=== PATIENT | female | born 1990 | race Caucasian/White ===

== ENCOUNTER 2021-03-16 08:23 | Outpatient (REF) | payer OTHER, SELFPAY ==
[2021-03-16 09:40] LABS: COVID-19 Test Negative (Negative)
== END 2021-03-16 08:24 | disposition home or self-care (01) ==
LOC: HO.LAB 08:23
PROVIDERS: Visit Provider Internal Medicine
DX: Z20.822 Contact with and (suspected) exposure to COVID-19 (principal)
CPT/HCPCS: 36415; 87635; C9803

== ENCOUNTER 2021-03-23 07:38 | Outpatient (REF) | payer OTHER, SELFPAY ==
[2021-03-23 08:03] LABS: COVID-19 Test Negative (Negative)
== END 2021-03-23 07:39 | disposition home or self-care (01) ==
LOC: HO.LAB 07:38
PROVIDERS: Visit Provider Internal Medicine
DX: Z20.822 Contact with and (suspected) exposure to COVID-19 (principal)
CPT/HCPCS: 36415; 87635; C9803

== ENCOUNTER → 2021-03-27 10:58 | Outpatient (BNVA) | payer OTHER, SELFPAY | PROVIDERS: Visit Provider Obstetrics & Gynecology ==

== ENCOUNTER → 2021-04-18 11:07 | Outpatient (BNVA) | payer OTHER, SELFPAY | PROVIDERS: PCP Internal Medicine Medical Oncology; Visit Provider Obstetrics & Gynecology | DX: Z30.432 Encounter for removal of intrauterine contraceptive device (principal); N83.202 Unspecified ovarian cyst, left side | CPT/HCPCS: 58301; 96372; 99212; J1050 ==

== ENCOUNTER 2021-04-27 07:50 | Outpatient (REF) | payer OTHER, SELFPAY ==
[2021-04-27 08:08] LABS: COVID-19 Test Negative (Negative)
== END 2021-04-27 07:51 | disposition home or self-care (01) ==
LOC: HO.EMPCOV 07:50
PROVIDERS: Visit Provider Internal Medicine
DX: Z20.822 Contact with and (suspected) exposure to COVID-19 (principal)
CPT/HCPCS: 36415; 87635; C9803

== ENCOUNTER 2021-05-03 11:10 | Outpatient (REF) | payer OTHER, SELFPAY ==
--- NOTE | ~2021-05-03 | US_ITS ---
EXAMINATION: ULTRASOUND PELVIS AND TRANSVAGINAL CLINICAL INFORMATION: Left side ovarian cyst. COMPARISON: None TECHNIQUE: Transabdominal and transvaginal imaging of pelvis was performed. FINDINGS: The uterus is anteverted and anteflexed measuring 8.0 cm in length, 4.1 cm AP and 4.9 cm in transverse dimension. The endometrial thickness is 0.4 cm. The uterus is homogeneous in echotexture without any focal lesion. There are small nabothian cysts seen in the cervix. Right ovary measures 3.5 x 1.7 x 2.5 cm and volume 7.8 mL. It appears unremarkable. Previously right ovary measured 3.1 x 1.8 x 3.0 cm. The left ovary measures 3.7 x 2.3 x 3.6 cm and volume 16.0 mL. No focal lesions seen. Previously left ovary measured 3.3 x 2.4 x 2.6 cm. There is no free fluid cul-de-sac. US/US pelvic and transvaginal IMPRESSION: Small nabothian cysts in the cervix. The uterus and ovaries unremarkable.
== END 2021-05-03 11:11 | disposition home or self-care (01) ==
LOC: HO.US 11:10
PROVIDERS: Visit Provider Obstetrics & Gynecology
DX: N83.202 Unspecified ovarian cyst, left side (principal)
CPT/HCPCS: 76830; 76856

== ENCOUNTER → 2021-05-18 11:31 | Outpatient (BNVA) | payer OTHER, SELFPAY | PROVIDERS: PCP Internal Medicine Medical Oncology; Visit Provider Obstetrics & Gynecology ==

== ENCOUNTER → 2021-07-13 12:56 | Outpatient (BNVA) | payer OTHER, SELFPAY | PROVIDERS: PCP Internal Medicine Medical Oncology; Visit Provider Obstetrics & Gynecology | DX: Z30.42 Encounter for surveillance of injectable contraceptive (principal) | CPT/HCPCS: 96372; 99211 ==

== ENCOUNTER → 2021-10-10 15:04 | Outpatient (BNVA) | payer OTHER, SELFPAY | PROVIDERS: PCP Internal Medicine Medical Oncology; Visit Provider Advanced Practice Midwife | DX: Z30.42 Encounter for surveillance of injectable contraceptive (principal) | CPT/HCPCS: 96372; 99211 ==

== ENCOUNTER 2021-10-16 11:15 | Emergency (ER) | payer OTHER, SELFPAY ==
[2021-10-16 12:44] VITALS: BP 104/66; PULSE 73; RESP 18; TEMP 36.5; O2SAT 99; BMI 18.9
--- NOTE | 2021-10-16 13:50 | ED_ITS ---
HPI - Dental/Oral General Chief complaint: Skin/Abscess/Foreign Body Stated complaint: dental pain (abscess) Time Seen by Provider: 10/16/21 13:49 Source: patient Mode of arrival: ambulatory Limitations: no limitations History of Present Illness HPI Narrative: 31-year-old female presenting to the ER with severe right-sided tooth pain for the last 3 days. She reports a history of fillings in cavities in the bottom molars on both sides. She reports pain started very mild on Friday afternoon and that has been getting progressively worse. She has been taking Motrin Tylenol without any improvement. She noticed when she woke up this morning she had right lower jaw swelling and pain. He has had no fever or chills. She is able to fully open and close her jaw. She has increased discomfort with palpation and when eating. She reports history of a bad experience with the dentist in the past and has not been in several years. MD Complaint: tooth pain Location: Tooth # Teeth map: 1. Cracked tooth with exposed cavity filling and pulp, associated gingival swelling and tenderness. Onset (ago): day(s) (3) Duration: constant Severity: severe Severity scale (1-10): 8 Relieving factors: nothing Exacerbating factors: chewing and cold Context: history of dental caries, trauma (mechanism) and poor dental care Associated symptoms: gum swelling Treatment prior to arrival: oral analgesic Related Data Previous Rx's Medication Instructions Recorded amoxicillin 500 mg capsule 500 mg PO BID 10 Days #20 cap 11/08/20 ibuprofen 800 mg tablet 800 mg PO Q8H PRN #20 tab 11/08/20 medroxyprogesterone 150 mg/mL 150 mg IM [id number] #1 ml 03/27/21 intramuscular suspension amoxicillin 500 mg tablet 500 mg PO Q8H 7 Days #21 tab 10/16/21 chlorhexidine gluconate 0.12 % 15 ml BUCCAL BID #118 ml 10/16/21 mouthwash (Peridex) ibuprofen 600 mg tablet 600 mg PO Q8H PRN #20 tab 10/16/21 tramadol 50 mg tablet 50 mg PO Q8H PRN #8 tab 10/16/21 Allergies Allergy/AdvReac Type Severity Reaction Status Date / Time No Known Allergies Allergy Verified 05/18/21 11:31 [No Known Allergies*] Review of Systems Constitutional: Constitutional: Denies chills, Denies fever(s) and Reports headache(s) Eyes: Eyes: Reports no additional eye complaints ENT: Denies bleeding gums, Reports dental pain, Denies dysphagia, Reports ot algia, Reports headache(s), Denies hoarseness, Reports mouth pain, Denies neck pain, Denies throat swelling and Denies tongue swelling Cardiovascular: Cardiovascular: Denies chest pain Respiratory: Respiratory: Denies cough Gastrointestinal: Gastrointestinal: Denies dysphagia, Denies nausea and Denies vomiting Musculoskeletal: Musculoskeletal: Denies neck pain Integumentary/Breasts: Skin/Breast: Reports swelling (Right mandible) Neurologic: Reports headache(s) Psychiatric: Psychiatric: Reports anxiety Hematologic/Lymphatic: Hematologic/Lymphatic: Denies easy bleeding Allergic/Immunologic: Allergic/Immunologic: Denies throat swelling and Denies tongue swelling [facility] Past Medical History Medical History (Updated 10/16/21 @ 14:30 by DELGADO Mcmanus) History of migraine Left ovarian cyst Ovarian cyst Surgical History (Updated 04/18/21 @ 11:15 by STACI Godoy) Hx of section Family History Family History (Updated 04/18/21 @ 11:15 by STACI Godoy) Paternal Aunt Breast cancer Social History Social History (Updated 04/18/21 @ 11:16 by STACI Godoy) Alcohol intake: never Advance Directives: No Advance Directives Information Provided: No Gender identity: Female Physical Exam Vital Signs: Vital Signs: Last Vital Signs Temp 97.7 F 10/16/21 12:44 Pulse 73 10/16/21 12:44 Resp 18 10/16/21 12:44 BP 104/66 10/16/21 12:44 Pulse Ox 99 10/16/21 12:44 Body Mass Index 18.9 Const: General: cooperative and no acute distress Nutritional Appearance: average body habitus Orientation/consciousness: patient oriented x3 Limitations: no limitations HENMT: Head: Yes normal to inspection, Yes normocephalic and Yes atraumatic Ears: hearing grossly normal bilaterally, external ears normal and TM's normal b ilaterally General nose exam: Normal external nose present and Normal nares present Face and sinus: Yes edema (Swelling of the right lower jaw. Face is asymmetrical.) and Yes Facial tenderness on exam of face and sinuses Mouth: Normal oral and palatal mucosa present, lip normal, tongue normal and moist mucous membranes Teeth and gingiva: abnormal tooth and associated gingiva lower second molar tender, avulsed, with associated gingival edema, with associated gingival fluctuance, enamel fractured, dentin fractured and pulp exposed and gingiva abnormal edematous, tender and discolored Throat: Yes posterior oropharynx normal, Yes tonsils normal and Yes uvula midline Eyes: General: appearance normal, both eyes and all related structures Neck: Neck: Yes normal visual inspection, No anterior neck swelling and Yes lymphadenopathy (Right sub mandibular) Chest: Chest palpation & inspection: normal inspection of the chest Resp: Effort & Inspection: normal respiratory effort and able to speak in complete sentences Skin: General skin exam: no rashes or lesions noted Neuro: General: patient oriented x3 Extrem: General: Yes normal to inspection Psych: Appearance: grossly normal and well kempt Mental Status: mental status grossly normal Speech and movement: Normal speech and movement present and Clear speech present Course Course Course Narrative: 31-year-old female presenting to the ER with right-sided lower dental pain for the last 3 days. Her exam and clinical presentation are consistent with a dental abscess. She has poor dental care with fractures and exposed pulp on the right 2nd lower molar. Topical lidocaine place with plan for incision and drainage. Patient agreeable. Will need antibiotics and dental follow-up. Expressed importance of following up with a dentist for evaluation of root canal versus extraction. Reevaluation(s) Reevaluation #1: Patient tolerated procedure well small amount of pus was expressed from the abscess. Will start on amoxicillin for 1 week, NSAIDs, pain control. Will have her follow-up with a dentist, emergency dentist was provided. Stable for discharge home with patient expressed understanding of the importance of following up with a dentist. Procedures Abscess I/D Site: oral Side (if applicable): right Local Anesthetic: other anesthetic (Topical lollicane) Technique: incised with blade Sent for culture/gram staining?: No Irrigation: Yes Packing used?: none Complications: pain and bleeding Critical Care Time Critical Care Time Critical Care Time: No Discharge Plan Discharge Clinical Impression: Abscess, dental Patient Disposition: Home, Self-Care Instructions: Dental Abscess (ED) Additional Instructions: A small incision was used to drain the abscess and your tooth. This will require further treatment and management by a dentist. Take the prescribed antibiotics as directed for 1 complete week. Take 600 mg of ibuprofen every 8 hours to help with pain and inflammation. Take with food. Avoid food very hot and very cold. Used prescribed antiseptic mouthwash 2 times a day as directed. Take the prescribed tramadol as needed for severe pain. Do not drive after taking this medication. Follow-up with a dentist as soon as possible. Emergency list was provided to you today. If you develop new or worsening symptoms call 911 or come back to the ER for further evaluation. Prescriptions: New amoxicillin 500 mg tablet 500 mg PO Q8H 7 Days Qty: 21 RF: 0 ibuprofen 600 mg tablet 600 mg PO Q8H PRN (Reason: pain) Qty: 20 RF: 0 chlorhexidine gluconate [Peridex] 0.12 % mouthwash 15 ml buccal BID Qty: 118 RF: 0 tramadol 50 mg tablet 50 mg PO Q8H PRN (Reason: pain) Qty: 8 RF: 0 No Action ibuprofen 800 mg tablet 800 mg PO Q8H PRN (Reason: pain) Qty: 20 RF: 0 amoxicillin 500 mg capsule 500 mg PO BID 10 Days Qty: 20 RF: 0 medroxyprogesterone 150 mg/mL suspension 150 mg IM [id number] Qty: 1 RF: 3
== END 2021-10-16 14:44 | disposition home or self-care (01) ==
PROVIDERS: Emergency Provider Emergency Medicine; PCP Internal Medicine Medical Oncology
DX: K04.7 Periapical abscess without sinus (principal); Z79.899 Other long term (current) drug therapy
CPT/HCPCS: 99283

== ENCOUNTER 2022-08-14 10:12 | Emergency (ER) | payer OTHER, SELFPAY ==
--- NOTE | ~2022-08-14 | XR_ITS ---
EXAMINATION: XR CHEST CLINICAL INFORMATION: Congestion, cough. COMPARISON: None TECHNIQUE: 2 views of the chest were obtained. FINDINGS: No significant abnormality is noted involving the heart, lungs, mediastinum, bony thorax or soft tissues. XR/XR chest 2V IMPRESSION: Unremarkable examination.
--- NOTE | 2022-08-14 10:44 | ECG_ITS ---
Test Reason : cp Blood Pressure : / mmHG Vent. Rate : 074 BPM Atrial Rate : 074 BPM P-R Int : 164 ms QRS Dur : 082 ms QT Int : 380 ms P-R-T Axes : 067 076 046 degrees QTc Int : 421 ms Normal sinus rhythm Normal ECG No previous ECGs available Referred By: Generic ED Physician Electronically Signed By:SUZI DAWN
[2022-08-14 10:49] VITALS: BP 121/74; PULSE 82; RESP 16; TEMP 36.6; O2SAT 100; BMI 19.1
[2022-08-14 11:05] LABS: Appearance Urine Clear; Color Urine Yellow; Glucose Urine UA Negative (Negative); Leukocyte Esterase Urine Trace (Negative); Nitrite Urine Negative (Negative); PH 5.5 (5.0-9.0); Specific Gravity - Urine 1.025 (1.005-1.025); UMIC TRIGGER UACC YES; Urine Blood Moderate (2+) (Negative); Urine Ketones Trace mg/dL (Negative); Urine Protein 30 (1+) mg/dL (Neg-Trace)
[2022-08-14 11:10] LABS: Bacteria Urine None Seen (None Seen); RBC Urine >20 /HPF (0-2); WBC Urine 0-5 /HPF (0-5)
[2022-08-14 11:51] LABS: UPreg QC Valid YES; Urine Pregnancy NEGATIVE (NEGATIVE)
== END 2022-08-14 16:36 | disposition left against medical advice (07) ==
PROVIDERS: Emergency Medicine; Emergency Provider Emergency Medicine
DX: U07.1 COVID-19 (principal); R07.89 Other chest pain; R51.9 Headache, unspecified; R10.9 Unspecified abdominal pain; Z79.899 Other long term (current) drug therapy
CPT/HCPCS: 71046; 81001; 81003; 81025; 93005; 99283

== ENCOUNTER 2022-09-10 11:57 | Outpatient (REF) | payer OTHER, SELFPAY ==
[2022-09-11 03:29] LABS: CT PCR NOT DETECTED (Not Detect.); NG PCR NOT DETECTED (Not Detect.)
[2022-09-11 12:44] LABS: BV Int Neg Control Negative (Negative); BV Int Pos Control Positive (Positive)
[2022-09-13 10:07] LABS: HPV mRNA E6/E7 rflx Not Detected (Not Detected)
== END 2022-09-10 11:58 | disposition home or self-care (01) ==
LOC: HO.LNP 11:57
PROVIDERS: Visit Provider Advanced Practice Midwife
DX: Z01.419 Encounter for gynecological examination (general) (routine) without abnormal findings (principal); Z11.51 Encounter for screening for human papillomavirus (HPV)
CPT/HCPCS: 87480; 87491; 87510; 87591; 87624; 87660; 88142

== ENCOUNTER → 2022-09-19 11:00 | Outpatient (BNVA) | payer OTHER, SELFPAY | PROVIDERS: PCP Nurse Practitioner Family; Visit Provider Advanced Practice Midwife | DX: Z30.42 Encounter for surveillance of injectable contraceptive (principal) | CPT/HCPCS: 96372; 99211 ==

== ENCOUNTER 2022-09-23 13:43 | Outpatient (REF) | payer OTHER, SELFPAY ==
--- NOTE | ~2022-09-23 | MM_ITS ---
EXAMINATION: MM DIAGNOSTIC DIGITAL BREAST TOMOSYNTHESIS, BILATERAL TARGETED RIGHT BREAST ULTRASOUND CLINICAL INFORMATION: Palpable mass. The lifetime risk of breast cancer based on the Tyrer-Cuzick Model is 16.1%. COMPARISON: Mammography: None. TECHNIQUE: Digital breast tomosynthesis is performed in both the craniocaudal and mediolateral oblique views along with computer-aided detection (CAD). Synthesized 2D images are generated from the tomosynthesis. Targeted right breast ultrasound. FINDINGS: The breasts are extremely dense, which lowers the sensitivity of mammography (ACR BI-RADS breast composition Category d). Breast parenchyma is very dense making mammographic evaluation difficult. No abnormal dominant mass is appreciated. No suspicious grouping of microcalcifications identified. Targeted right breast ultrasound to region of patient's pain 7 o'clock position 4 cm from the nipple demonstrated a hypoechoic lesion measuring approximately 2.4 x 0.4 x 2.3 cm in size with some mild internal vascularity present. The lesion is wider than it is tall. No distal sound shadowing is appreciated. No significant distal sound enhancement is seen. Ultrasound-guided core biopsy is recommended. Results are discussed with the patient at time of visit. MM/MM tomosynthesis diagnostic BI IMPRESSION: Solid right breast lesion in region of patient's pain and mass felt by doctor for which ultrasound-guided core biopsy is recommended. ASSESSMENT: BI-RADS 4: Suspicious (subcategory 4A: Low suspicion for malignancy) RECOMMENDATION: Ultrasound-guided core biopsy right breast. Above recommendation was called to provider's office given to [place]. This patient's information was entered into a reminder system with a target due date for their next mammogram.
== END 2022-09-23 13:44 | disposition home or self-care (01) ==
LOC: HO.MAMMO 13:43
PROVIDERS: PCP Internal Medicine; Visit Provider Nurse Practitioner Family
DX: N63.13 Unspecified lump in the right breast, lower outer quadrant (principal)
CPT/HCPCS: 76642; 77062; 77066

== ENCOUNTER 2022-09-27 12:10 | Outpatient (REF) | payer OTHER, SELFPAY ==
[2022-09-27 13:37] LABS: MANUAL DIFF FLAG NO
[2022-09-27 13:42] LABS: Basophils Absolute Auto 0.1 X10*3/uL (0.0-0.2); Basophils Percent Auto 0.9 % (0-2); Eosinophils Absolute Auto 0.1 X10*3/uL (0.0-0.4); Eosinophils Percent Auto 1.4 % (0-4); Hematocrit 42.4 % (37.0-47.0); Hemoglobin 14.4 g/dl (12.0-16.0); Imm Gran Abs Auto 0.02 X10*3/uL (0.00-0.03); Imm Gran Pct Auto 0.3 % (0.0-0.4); Lymphocytes Absolute Auto 2.6 X10*3/uL (1.2-4.9); Lymphocytes Percent Auto 37.4 % (20-40); Mean Corpuscular Hemoglobin 30.3 pg (27.0-33.0); Mean Corpuscular Volume 89.3 fL (80.0-98.0); Mean Platelet Volume 8.4 fL (9.4-12.3); Monocytes Absolute Auto 0.5 X10*3/uL (0.1-1.2); Monocytes Percent Auto 7.1 % (2-11); Neutrophils Absolute Auto 3.7 x10*3/uL (2.0-8.3); Neutrophils Percent Auto 52.9 % (45-73); Platelet Count 296 X10*3/uL (160-400); Red Blood Count 4.75 X10*6/uL (4.20-5.50); Red Cell Distribution Width 12.8 % (11.0-16.0); White Blood Count 6.9 X10*3/uL (4.8-10.8)
[2022-09-27 14:07] LABS: Appearance Urine Clear; Color Urine Yellow; Glucose Urine UA Negative (Negative); Leukocyte Esterase Urine Negative (Negative); Nitrite Urine Negative (Negative); PH 5.5 (5.0-9.0); Specific Gravity - Urine >= 1.030 (1.005-1.025); Urine Blood Negative (Negative); Urine Ketones Negative (Negative); Urine Protein Negative (Neg-Trace)
[2022-09-27 14:45] LABS: Alanine Aminotransferase 16 U/L (0-31); Albumin Level 4.8 g/dL (3.5-5.0); Alkaline Phosphatase 57 U/L (39-117); Anion Gap 16 (12-20); Aspartate Amino Transferase 21 U/L (5-31); Bilirubin Total 0.3 mg/dL (0.0-1.0); Blood Urea Nitrogen 12 mg/dL (9-16); Calcium 9.5 mg/dL (8.4-10.2); Carbon Dioxide 22 mmol/L (22-29); Chloride 102 mmol/L (96-108); Estimated Glomerular Filt Rate > 60; Glucose Random 80 mg/dL (60-115); Sodium 136 mmol/L (135-145); Total Protein 7.4 g/dL (6.5-8.0)
[2022-09-27 15:08] LABS: TSH reflex Free T4 1.38 uIU/mL (0.32-4.0); Vitamin D 25-OH Total 12.3 ng/mL (>30)
== END 2022-09-27 12:11 | disposition home or self-care (01) ==
LOC: HO.10HDL 12:10
PROVIDERS: Visit Provider Internal Medicine
DX: F41.9 Anxiety disorder, unspecified (principal); R53.83 Other fatigue; E55.9 Vitamin D deficiency, unspecified; R30.0 Dysuria
CPT/HCPCS: 36415; 80053; 81003; 82306; 84443; 85025

== ENCOUNTER 2022-10-04 09:25 | Outpatient (REF) | payer OTHER, SELFPAY ==
--- NOTE | ~2022-10-04 | MM_ITS ---
EXAMINATION: ULTRASOUND GUIDED CORE BIOPSY BREAST, RIGHT POST PROCEDURE DIGITAL MAMMOGRAM, RIGHT CLINICAL INFORMATION: 32-year-old with palpable area lower outer right breast, possibly fibroadenoma or PASH on ultrasound. COMPARISON: Mammography and right breast ultrasound 09/23/2022. FINDINGS: Proper informed consent is obtained from the patient after discussion of the procedure, potential risks and complications, and alternatives. Patient was given an opportunity for questions. The patient appeared to understand. The patient consented to the procedure and signed the consent form. GUIDANCE: Ultrasound-guided; aseptic technique. LESION: Circumscribed oblong hypoechoic mass lower inner breast parallel with the skin measuring 0.4 cm thickness by 2.4 cm in length.. APPROACH: Oblique lateral medial. ANESTHESIA: 10 mL carbonated 1% lidocaine. DERMATOTOMY: Single skin nola dermatotomy performed. NEEDLE: 14-gauge Achieve core biopsy device with 13.5-gauge co-axial guide needle. CORES: 5. CLIP: HydroMARK; shape: open coil. POST PROCEDURE UNILATERAL DIGITAL MAMMOGRAM: The post biopsy mammogram is performed in separate room using separate digital mammography equipment from the biopsy procedure. CC and ML views are obtained. The breasts are extremely dense, which lowers the sensitivity of mammography (breast composition category: d). The clip marker is in position. No gross hematoma. The patient tolerated the procedure well. No immediate complications. Home instructions reviewed with the patient. Final pathology results are pending. MM/MM diagnostic mammo unilat RT IMPRESSION: 1. Status post ultrasound-guided core biopsy right breast. 2. Clip placed: HydroMARK; shape: open coil. 3. Pathology pending. An addendum report will be issued.
[2022-10-04] MEDS: Lidocaine HCl 1 % 20 ML VIAL 10 ML SUBCUT (11:03)
[2022-10-04] MEDS: Sodium Bicarbonate 8.4% 50 MEQ/50 ML VIAL SUBCUT (11:04)
== END 2022-10-04 09:26 | disposition home or self-care (01) ==
LOC: HO.MAMMO 09:25
PROVIDERS: PCP Internal Medicine; Visit Provider Surgery
DX: R92.8 Other abnormal and inconclusive findings on diagnostic imaging of breast (principal)
CPT/HCPCS: 19083; 77062; 77065; 88305; 99202; A4648

== ENCOUNTER → 2022-10-09 12:51 | Outpatient (BNVA) | payer OTHER, SELFPAY | PROVIDERS: PCP Internal Medicine; Visit Provider Surgery | DX: D24.9 Benign neoplasm of unspecified breast (principal); Z80.3 Family history of malignant neoplasm of breast | CPT/HCPCS: 99212 ==

== ENCOUNTER 2022-12-05 16:47 | Outpatient (REF) | payer OTHER, SELFPAY ==
--- NOTE | ~2022-12-05 | XR_ITS ---
EXAMINATION: XR LUMBOSACRAL SPINE CLINICAL INFORMATION: Low back pain COMPARISON: None TECHNIQUE: Three views of the lumbosacral spine. FINDINGS: The vertebral bodies and posterior elements are normal. The disc spaces are preserved and the vertebral alignment is normal. The paraspinal soft tissues are normal. XR/XR lumbar spine 2-3V IMPRESSION: Unremarkable examination.
== END 2022-12-05 16:48 | disposition home or self-care (01) ==
LOC: HO.XRAY 16:47
PROVIDERS: PCP Internal Medicine; Visit Provider Internal Medicine
DX: M54.50 Low back pain, unspecified (principal)
CPT/HCPCS: 72100

== ENCOUNTER → 2022-12-11 10:51 | Outpatient (BNVA) | payer OTHER, SELFPAY | PROVIDERS: PCP Internal Medicine; Visit Provider Advanced Practice Midwife | DX: Z30.42 Encounter for surveillance of injectable contraceptive (principal) | CPT/HCPCS: 96372; 99211 ==

== ENCOUNTER 2023-05-09 07:49 | Emergency (ER) | payer OTHER, SELFPAY ==
[2023-05-09 07:53] VITALS: BP 128/81; PULSE 77; RESP 18; TEMP 36.2; O2SAT 98; BMI 21.5
--- NOTE | 2023-05-09 08:15 | ED_ITS ---
HPI - General Adult General Chief complaint: Dental/Oral Stated complaint: tooth infection Time Seen by Provider: 05/09/23 08:03 Source: patient Mode of arrival: ambulatory Limitations: no limitations History of Present Illness HPI narrative: Patient is a 33-year-old female with history of migraines, fibroadenoma, smoking, and dental abscesses presenting with dental pain to right lower jaw for the past 3 days. Patient was prescribed Keflex and Tramadol for her symptoms which she has been taking for two days without improvement. She reports significant tooth decay, does not currently have a dentist. She reports history of prior bad experiences and significant anxiety related to going to the dentist but states she is actively looking for a dentist for her symptoms. She denies any fevers, is able to fully open her jaw, is still smoking. She reports pain is radiating to her right ear and right lower jaw. States has also been using mouthwash. Denies recent steroids or inhaler use. MD complaint: right dental pain Onset (ago): day(s) Location: mouth and right Radiation: other (right ear, right lower jaw) Severity: severe Quality: aching Pain Consistency: constant Relieving factors: cold therapy Exacerbating factors: eating Associated symptoms: denies other symptoms Treatments prior to arrival: other (keflex, tramadol) Related Data Previous Rx's Medication Instructions Recorded medroxyprogesterone 150 mg/mL 150 mg IM Q12W #1 mL 09/10/22 intramuscular suspension (Depo-Provera) sumatriptan succinate 50 mg tablet See Rx Instructions PO .COMPLEX 10/29/22 #30 tabs tizanidine 4 mg tablet 4 mg PO Q8H PRN muscle spasticity 11/22/22 10 days #30 tabs vjvivhrnxv-shdnxpwfnawte-txbpelje 1 tab PO Q6H PRN headache #30 tabs 03/13/23 50 mg-325 mg-40 mg tablet sertraline 50 mg tablet 50 mg PO DAILY 30 days #30 tabs 03/18/23 hydrocodone 5 mg-acetaminophen 325 1 tab PO BID PRN severe pain #10 04/10/23 mg tablet tabs cephalexin 500 mg capsule 500 mg PO QID 7 days #28 caps 05/08/23 tramadol 50 mg tablet 50 mg PO TID PRN pain 7 days #20 05/08/23 tabs amoxicillin 875 mg tablet 875 mg PO TID #21 tabs 05/09/23 nystatin 100,000 unit/mL oral 500,000 unit (5 mL) PO QID 7 days 05/09/23 suspension #140 mL Allergies Allergy/AdvReac Type Severity Reaction Status Date / Time No Known Allergies Allergy Verified 05/09/23 07:53 [No Known Allergies*] Review of Systems Review of Systems: As per HPI. Yes all other systems are reviewed and are negative Constitutional: Constitutional: Reports as per HPI [facility] Past Medical History Medical History Family history of breast cancer Fibroadenoma History of migraine Left ovarian cyst Ovarian cyst Smoker Surgical History Hx of section Family History Family History Paternal Aunt Breast cancer Father Hypertension High cholesterol Mother Hypertension High cholesterol Social History Social History Housing: Apartment Alcohol intake: current Alcohol intake frequency: holidays/special occasions only Patient Tobacco Use Status: Current everyday Tobacco user Tobacco use type: Cigarette Cigarettes Per Day: 7 Second Hand Smoke Exposure: Yes Advance Directives: No Advance Directives Information Provided: No service: No Current occupational status: employed Gender identity: Female Cognitive needs: No Hearing needs: No Vision needs: No Physical Exam ED Vital Signs: Vital Signs - 24 hr 05/09/23 07:53 Temperature 97.1 F Pulse Rate 77 Respiratory Rate 18 Blood Pressure 128/81 Pulse Oximetry 98 Oxygen Delivery Method Room Air BMI result Body Mass Index 21.5 Vital signs have been reviewed and appear to be correct. Blood pressure normal. Heart rate normal. Respiratory rate normal. Temperature normal. Oxygen saturation normal. Const General: cooperative, healthy appearing and no acute distress Orientation/consciousness: oriented to person, oriented to place, oriented to time and patient oriented x3 Limitations: no limitations HENMT Head: Yes normocephalic and Yes atraumatic Ears: external ears normal, TM's normal bilaterally, EAC's normal, mastoids normal and no periauricular adenopathy General nose exam: Normal external nose present Mouth: no audible dysphonia, no drooling, tongue abnormal discolored (white plaque) and with white coating; not hairy and without lesions, no trismus and No restricted motion Teeth and gingiva: abnormal tooth and associated gingiva lower right and poor dentition Teeth image: 1. Exposed cavity filling and pulp, gingival erythema, tenderness Throat: Yes posterior oropharynx normal and Yes uvula midline Eyes Pupils: Equal, round and reactive pupils present Neck Neck: Yes normal visual inspection and Yes supple Resp Effort & Inspection: normal respiratory effort and able to speak in complete sentences Auscultation: clear to auscultation bilaterally Cardio Rate: regular rate Rhythm: regular rhythm Heart sounds: S1 normal heart sound present and S2 normal heart sound present GI Palpation (GI): Soft to palpation and nontender Auscultation: normoactive bowel sounds General: Yes no CVA tenderness Back/Spine/Pelvis Back: no CVA tenderness Skin General skin exam: elasticity normal and turgor normal Neuro General: oriented to person, oriented to place, oriented to time, patient oriented x3, moves all extremities, no focal motor deficits and CN's II-XI intact bilaterally Cranial nerves: Yes Equal, round and reactive pupils present Cognition (Neuro): normal cognition Extrem General: Yes full ROM, Yes no pedal edema and Yes no calf tenderness Psych Mental Status: mental status grossly normal Affect: normal affect Thought process: Normal thought process present Medical Decision Making Medical Decision Making MDM Narrative: Patient is a 33-year-old female with history of migraines, fibroadenoma, smoking, and dental abscesses presenting with dental pain to right lower jaw for the past 3 days. On exam patient is awake, A+Ox3, white plaque to tongue, erythema, tenderness to right lower gingiva, afebrile, mild right submandibular lymphadenopathy. Exam consistent with dental infection, as well as oral c andidiasis, no evidence of abscess. Instructed patient to discontinue Keflex, prescribed amoxicillin and nystatin solution. Discussed with patient the importance of immediate follow-up with dentist, as she will likely require root canal or extraction. Patient provided with list of dental clinics. Discussed with patient the importance of smoking cessation. All questions answered and patient agreeable with plan. Return precautions discussed at bedside. Differential Diagnosis Differential Diagnoses: The differential diagnosis associated with the presentation includes dental infection, oral candidiasis, dental abscess External Record Review External record reviewed: Inpatient record, Office record and Outpatient record Prescription Management I considered prescription management with: Antibiotic Discharge Plan Discharge Clinical Impression: Infected tooth, Dental caries, Candidiasis of mouth Patient Disposition: Home, Self-Care Instructions: Dental Abscess (ED), Oral Candidiasis (ED) Additional Instructions: You were evaluated in the emergency department for dental pain. Please discontinue the cephalexin (Keflex) immediately and begin taking amoxicillin. You are also being prescribed a Nystatin mouthwash for oral thrush. It is important that you follow up with a dentist as soon as possible. You have been provided with a list of available dentists in the area. Return to the emergency department if you develop fever greater than 100.4? F, increasing area of swelling, inability to open your jaw, increasing amount of discharge from your tooth, or other concerning symptoms. Prescriptions: New nystatin 100,000 unit/mL suspension 500,000 unit PO QID 7 Days Qty: 140 0RF Rx Instructions: administer 1/2 of dose in each side of the mouth, swish for as long as possible, then swallow amoxicillin 875 mg tablet 875 mg PO TID Qty: 21 0RF No Action sumatriptan succinate 50 mg tablet See Rx Instructions PO .COMPLEX Qty: 30 3RF Rx Instructions: take 1 tab at onset of headache; if no relief may repeat 1 tab after at least 2 hrs; max = 4 tabs/24 hr PO tizanidine 4 mg tablet 4 mg PO Q8H PRN (Reason: muscle spasticity) 10 Days Qty: 30 0RF lykjkzaryk-jxfzprnlwgwjn-xipt 50-325-40 mg tablet 1 tab PO Q6H PRN (Reason: headache) Qty: 30 2RF sertraline 50 mg tablet 50 mg PO DAILY 30 Days Qty: 30 2RF hydrocodone-acetaminophen 5-325 mg tablet 1 tab PO BID PRN (Reason: severe pain) Qty: 10 0RF Rx Instructions: Partial Fill upon patient request; take ONLY NEEDED for SEVERE PAIN cephalexin 500 mg capsule 500 mg PO QID 7 Days Qty: 28 0RF tramadol 50 mg tablet 50 mg PO TID PRN (Reason: pain) 7 Days Qty: 20 0RF medroxyprogesterone [Depo-Provera] 150 mg/mL suspension 150 mg IM Q12W Qty: 1 5RF
== END 2023-05-09 09:01 | disposition home or self-care (01) ==
PROVIDERS: Emergency Provider Internal Medicine; PCP Internal Medicine
DX: K04.7 Periapical abscess without sinus (principal); B37.0 Candidal stomatitis
CPT/HCPCS: 99282; 99283

== ENCOUNTER 2023-10-14 13:59 | Emergency (ER) | payer OTHER, SELFPAY ==
--- NOTE | ~2023-10-14 | US_ITS ---
EXAMINATION: US PELVIS CLINICAL INFORMATION: Left-sided abdominal pain LMP 09/30/2023 COMPARISON: Pelvic ultrasound 05/03/2021 TECHNIQUE: Ultrasound of the pelvis is performed using both transabdominal and transvaginal transducers along with Doppler. Transvaginal imaging is performed due to inadequate visualization transabdominally. FINDINGS: Uterus: The uterus is anteverted and measures 11.0 x 3.5 x 5.9 cm. No focal fibroid. Prominent arcuate arteries are seen within the uterus. The endometrium is homogeneous and measures 0.5 cm Trace free fluid is seen in the cervix. Adnexa: Both ovaries are visualized. There is normal color flow to the adnexa. There is no ovarian torsion. Right ovary measures 2.9 x 1.7 x 3.2 cm. Volume 7.7 mL. Probable collapsing 2.0 x 1.3 x 2.1 cm corpus luteum in the right ovary. Left ovary is normal in appearance and measures 2.2 x 2.0 x 3.0 cm. Volume 7.2 mL. Pelvic congestion with prominent vascularity is seen in the right adnexa. There is moderate free fluid within the cul-de-sac. US/US pelvic ovarian doppler IMPRESSION: 1. Normal uterus and left ovary. 2. Probable collapsing corpus luteum in the right ovary. No imaging follow-up is recommended. 3. Pelvic congestion with prominent vascularity in the right adnexa. 4. Moderate free fluid within the cul-de-sac. This can be a normal physiologic finding.
--- NOTE | ~2023-10-14 | CT_ITS ---
EXAMINATION: CT ABDOMEN AND PELVIS WITHOUT CONTRAST CLINICAL INFORMATION: Left lower quadrant pain COMPARISON: Pelvic ultrasound from earlier the same day TECHNIQUE: Multidetector volumetric imaging was performed from the superior aspect of the liver through the pubic symphysis. Sagittal and coronal reformatted images were obtained on the technologist's workstation. This CT examination was performed using dose optimization techniques as appropriate, variously including the following: *Automated exposure control *Adjustment of mA and/or kV according to patient size (this includes techniques or standardized protocols for targeted exams where dose is matched to indication/reason for exam; i.e. extremities or head) *Use of iterative reconstruction technique DLP: 234 mGy-cm FINDINGS: LUNG BASES: The visualized lung bases are unremarkable. LIVER, GALLBLADDER, AND BILIARY TREE: The liver is normal in size, shape, and attenuation. Small 5 mm low-attenuation lesion in the left lobe of the liver. This may represent a cyst. No other focal hepatic lesion or biliary ductal dilatation is present. The gallbladder is unremarkable with no evidence of radiopaque gallstones, gallbladder wall thickening, or obvious pericholecystic inflammatory changes. PANCREAS: Unremarkable. SPLEEN: Unremarkable. ADRENAL GLANDS: Unremarkable. KIDNEYS AND URETERS: The kidneys are normal in size, shape, and attenuation. No hydronephrosis, hydroureter, or calculi seen. No perinephric stranding. BLADDER: Unremarkable. GASTROINTESTINAL TRACT: Limited evaluation of the bowel without oral or IV contrast. . There may be prominent vascularity in fat stranding of the small bowel mesentery. The small and large bowel otherwise appear unremarkable. The appendix is unremarkable. ABDOMINAL WALL: No significant hernia is appreciated. LYMPH NODES: Normal. VASCULAR: Unremarkable. PELVIC VISCERA: Small amount of fluid in the pelvis. Fat stranding anterior to the uterus and superior to the bladder. OSSEOUS STRUCTURES: Unremarkable. CT/CT abdomen pelvis wo IV con IMPRESSION: Limited exam due to lack of oral and IV contrast. Small amount of fluid in the pelvis. Stranding of the fat pelvis anterior to the uterus and superior to the bladder in the pelvis. Question fat stranding and prominent vascularity of the small bowel mesentery. Fleischner guidelines were followed.
--- NOTE | ~2023-10-14 | US_ITS ---
EXAMINATION: US PELVIS CLINICAL INFORMATION: Left-sided abdominal pain LMP 09/30/2023 COMPARISON: Pelvic ultrasound 05/03/2021 TECHNIQUE: Ultrasound of the pelvis is performed using both transabdominal and transvaginal transducers along with Doppler. Transvaginal imaging is performed due to inadequate visualization transabdominally. FINDINGS: Uterus: The uterus is anteverted and measures 11.0 x 3.5 x 5.9 cm. No focal fibroid. Prominent arcuate arteries are seen within the uterus. The endometrium is homogeneous and measures 0.5 cm Trace free fluid is seen in the cervix. Adnexa: Both ovaries are visualized. There is normal color flow to the adnexa. There is no ovarian torsion. Right ovary measures 2.9 x 1.7 x 3.2 cm. Volume 7.7 mL. Probable collapsing 2.0 x 1.3 x 2.1 cm corpus luteum in the right ovary. Left ovary is normal in appearance and measures 2.2 x 2.0 x 3.0 cm. Volume 7.2 mL. Pelvic congestion with prominent vascularity is seen in the right adnexa. There is moderate free fluid within the cul-de-sac. US/US pelvic and transvaginal IMPRESSION: 1. Normal uterus and left ovary. 2. Probable collapsing corpus luteum in the right ovary. No imaging follow-up is recommended. 3. Pelvic congestion with prominent vascularity in the right adnexa. 4. Moderate free fluid within the cul-de-sac. This can be a normal physiologic finding.
[2023-10-14 14:03] VITALS: BP 116/58; PULSE 75; RESP 18; TEMP 36.6; O2SAT 99; BMI 21.5
--- NOTE | 2023-10-14 14:04 | ED_ITS ---
HPI - General Adult General Chief complaint: Abdominal Pain Stated complaint: Pelvic Pain Time Seen by Provider: 10/14/23 15:22 Source: patient Mode of arrival: ambulatory Limitations: no limitations History of Present Illness HPI narrative: Patient is a 33-year-old female presenting to the emergency department complaining left lower quadrant abdominal pain for the past 2-3 days. Describes the pain as a spasming sensation. States pain is currently 5/10 but at times become so severe that she is doubled over. She denies any back or flank pain. Denies any nausea, vomiting, diarrhea, constipation. States most recent menses ended on 10/06, denies any abnormal vaginal discharge. Denies any concern for STIs. Denies fevers. States she contacted her urogynecology physician who recommended evaluation in the emergency department. MD complaint: abdominal pain Onset (ago): day(s) Location: abdomen Radiation: other (groin) Severity scale (1-10): 5 Quality: other (spasming/cramping) Pain Consistency: colicky Relieving factors: none Associated symptoms: denies other symptoms Treatments prior to arrival: none Related Data Previous Rx's Medication Instructions Recorded medroxyprogesterone 150 mg/mL 150 mg IM Q12W #1 mL 09/10/22 intramuscular suspension (Depo-Provera) sumatriptan succinate 50 mg tablet See Rx Instructions PO .COMPLEX 10/29/22 #30 tabs tizanidine 4 mg tablet 4 mg PO Q8H PRN muscle spasticity 11/22/22 10 days #30 tabs rwkumhpulg-zecmwricrqnye-lkmowvoa 1 tab PO Q6H PRN headache #30 tabs 03/13/23 50 mg-325 mg-40 mg tablet sertraline 50 mg tablet 50 mg PO DAILY 30 days #30 tabs 03/18/23 nystatin 100,000 unit/mL oral 500,000 unit (5 mL) PO QID 7 days 05/09/23 suspension #140 mL hydroxyzine HCl 25 mg tablet 25 mg PO TID PRN anxiety 30 days 07/08/23 #90 tabs cephalexin 500 mg capsule 500 mg PO QID 7 days #28 caps 07/16/23 hydrocodone 5 mg-acetaminophen 325 1 tab PO BID PRN severe pain #10 07/16/23 mg tablet tabs amoxicillin 875 mg tablet 875 mg PO TID #21 tabs 09/15/23 tramadol 50 mg tablet 50 mg PO TID PRN pain 7 days #20 09/15/23 tabs Allergies Allergy/AdvReac Type Severity Reaction Status Date / Time No Known Allergies Allergy Verified 10/14/23 14:03 [No Known Allergies*] Review of Systems 2 Review of Systems: As per HPI. Yes all other systems are reviewed and are negative Constitutional: Constitutional: Reports as per HPI [facility] Past Medical History Medical History Family history of breast cancer Fibroadenoma History of migraine Left ovarian cyst Ovarian cyst Smoker Surgical History Hx of section Family History Family History Paternal Aunt Breast cancer Father Hypertension High cholesterol Mother Hypertension High cholesterol Social History Social History Housing: Apartment Alcohol intake: current Alcohol intake frequency: holidays/special occasions only Patient Tobacco Use Status: Current everyday Tobacco user Tobacco use type: Cigarette Cigarettes Per Day: 7 Second Hand Smoke Exposure: Yes Advance Directives: No service: No Current occupational status: employed Gender identity: Female Cognitive needs: No Hearing needs: No Vision needs: No Physical Exam ED Vital Signs: Vital Signs - 24 hr 10/14/23 14:03 10/14/23 16:14 Temperature 98 F 98.5 F Pulse Rate 75 70 Respiratory Rate 18 16 Blood Pressure 116/58 L 106/70 Pulse Oximetry 99 100 Oxygen Delivery Method Room Air Room Air BMI result Body Mass Index 21.5 Vital signs have been reviewed and appear to be correct. Blood pressure normal. Heart rate normal. Respiratory rate normal. Temperature normal. Oxygen saturation normal. Const General: cooperative, healthy appearing and no acute distress Orientation/consciousness: oriented to person, oriented to place, oriented to time and patient oriented x3 Limitations: no limitations HENMT Head: Yes normocephalic and Yes atraumatic Ears: external ears normal General nose exam: Normal external nose present Face and sinus: Yes face symmetric Mouth: oropharynx normal and moist mucous membranes Throat: Yes uvula midline Eyes Pupils: Equal, round and reactive pupils present Neck Neck: Yes normal visual inspection and Yes supple Resp Effort & Inspection: normal respiratory effort and able to speak in complete sentences Auscultation: clear to auscultation bilaterally Cardio Rate: regular rate Rhythm: regular rhythm Heart sounds: S1 normal heart sound present and S2 normal heart sound present GI Palpation (GI): Soft to palpation, Tenderness to palpation present (GI) in the LLQ, no guarding and No Rebound tenderness present Auscultation: normoactive bowel sounds General: Yes no CVA tenderness Back/Spine/Pelvis Back: no CVA tenderness Skin General skin exam: elasticity normal and turgor normal Neuro General: oriented to person, oriented to place, oriented to time, patient oriented x3, moves all extremities, no focal motor deficits and CN's II-XI intact bilaterally Cranial nerves: Yes Equal, round and reactive pupils present Cognition (Neuro): normal cognition Extrem General: Yes full ROM, Yes no pedal edema and Yes no calf tenderness Psych Mental Status: mental status grossly normal Affect: normal affect Thought process: Normal thought process present Course Course Course Narrative: This is an RME: Additional HPI, ROS, PE not included below will be deferred to primary provider. 33 yo f presnts w/ l sided pelvic pain x few days worsening. Was told to come in by her obgyn today. No vaginal bleeding/ discharge. LMP 10/06/2023. Unsure if she could be Plan- US, labs, urine Medical Decision Making Medical Decision Making MDM Narrative: Patient is a 33-year-old female presenting to the emergency department complaining left lower quadrant abdominal pain for the past 2-3 days. On exam patient is awake, A+Ox3, VS WNL, afebrile, normal neurological exam without focal deficits, physical exam findings as above. Given reported symptoms and physical exam findings, initial differential includes UTI, ectopic , ovarian cyst, fibroid, constipation. Less likely appendicitis, ovarian torsion, PID. Labs notable for no leukocytosis, no anemia, no evidence of JESUS, no significant electrolyte abnormalities. Ultrasound notable for normal uterus and left ovary, probable collapsing corpus luteum and right ovary, pelvic congestion with prominent vascularity and right adnexa, moderate free fluid in cul-de-sac. 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 Patient wishes to sign out against medical advice, will follow up on results of CT scan via the portal. Discussed risks of leaving up to and including , patient stating she still wishes to sign out against medical advice. Advised patient she can return to the emergency department at any time if symptoms worsen. Differential Diagnosis Differential Diagnoses: The differential diagnosis associated with the presentation includes As per MDM. Admission/Observation Consideration of admission/observation: Escalation of care including admission/observation considered Lab Data [facility] Lab Attestation statement: I reviewed the patient's lab results. As per MDM. 10/14/23 14:18 10/14/23 14:18 Labs: Lab Results 10/14/23 10/14/23 Range/Units 14:18 17:47 WBC 6.7 (4.8-10.8) X10*3/uL RBC 4.80 (4.20-5.50) X10*6/uL Hgb 14.8 (12.0-16.0) g/dl Hct 43.2 (37.0-47.0) % MCV 90.0 (80.0-98.0) fL MCH 30.8 (27.0-33.0) pg MCHC 34.3 (31.0-35.0) g/dl RDW 13.2 (11.0-16.0) % Plt Count 241 (160-400) X10*3/uL MPV 8.8 L (9.4-12.3) fL Immature Gran % (Auto) 0.3 (0.0-0.4) % Neut % (Auto) 50.9 (45-73) % Lymph % (Auto) 37.1 (20-40) % Harper % (Auto) 9.6 (2-11) % Eos % (Auto) 1.5 (0-4) % Baso % (Auto) 0.6 (0-2) % Lymph # (Auto) 2.5 (1.2-4.9) X10*3/uL Harper # (Auto) 0.6 (0.1-1.2) X10*3/uL Eos # (Auto) 0.1 (0.0-0.4) X10*3/uL Baso # (Auto) 0.0 (0.0-0.2) X10*3/uL Abs Immat Gran (auto) 0.02 (0.00-0.03) X10*3/uL Absolute Neuts (auto) 3.4 (2.0-8.3) x10*3/uL Absolute Nucleated RBC 0.000 (0.0-0.012) X10*3/uL Nucleated RBC % (auto) 0.0 (0.0-0.2) /100WBC Sodium 136 (135-145) mmol/L Potassium 4.1 (3.3-5.1) mmol/L Chloride 106 (96-108) mmol/L Carbon Dioxide 25 (22-29) mmol/L Anion Gap 9 L (12-20) BUN 8 L (9-16) mg/dL Creatinine 0.68 (0.5-1.4) mg/dL Estim Creat Clear Calc 85.3 Estimated GFR > 60 Random Glucose 88 (60-115) mg/dL Calcium 9.7 (8.4-10.2) mg/dL Magnesium 2.0 (1.6-2.6) mg/dL Total Bilirubin 0.4 (0.0-1.0) mg/dL AST 19 (5-31) U/L ALT 9 (0-31) U/L Alkaline Phosphatase 57 (39-117) U/L Total Protein 7.2 (6.5-8.0) g/dL Albumin 4.5 (3.5-5.0) g/dL Beta HCG, Quant < 2 mIU/mL Urine Color Dark Yellow Urine Appearance Cloudy Urine pH 7.0 (5.0-9.0) Ur Specific [place] 1.025 (1.005-1.025) Urine Protein Negative (Neg-Trace) mg/dL Urine Glucose (UA) Negative (Negative) mg/dL Urine Ketones Trace (Negative) mg/dL Urine Blood Negative (Negative) Urine Nitrite Negative (Negative) Ur Leukocyte Esterase Negative (Negative) Chlam trachomat DNA PCR NOT DETECTED (Not Detect.) N.gonorrhoeae DNA (PCR) NOT DETECTED (Not Detect.) Independent Interpretation I performed an independent interpretation of an: Ultrasound and CT Scan Interpretation: No evidence of ovarian torsion, cyst, uterine fibroid on ultrasound. Radiology Impression Discussion of test interpretation with radiology: I have reviewed the radiologist's reading. Radiologist Impression: US/US pelvic and transvaginal IMPRESSION: 1. Normal uterus and left ovary. 2. Probable collapsing corpus luteum in the right ovary. No imaging follow-up is recommended. 3. Pelvic congestion with prominent vascularity in the right adnexa. 4. Moderate free fluid within the cul-de-sac. This can be a normal physiologic finding. External Record Review External record reviewed: Inpatient record, Office record and Outpatient record Discharge Plan Discharge Clinical Impression: Abdominal pain Patient Disposition: Left Against Medical Advice Prescriptions: No Action sumatriptan succinate 50 mg tablet See Rx Instructions PO .COMPLEX Qty: 30 3RF Rx Instructions: take 1 tab at onset of headache; if no relief may repeat 1 tab after at least 2 hrs; max = 4 tabs/24 hr PO tizanidine 4 mg tablet 4 mg PO Q8H PRN (Reason: muscle spasticity) 10 Days Qty: 30 0RF pmlhfgepjk-kybwgniwkriqc-yecx 50-325-40 mg tablet 1 tab PO Q6H PRN (Reason: headache) Qty: 30 2RF sertraline 50 mg tablet 50 mg PO DAILY 30 Days Qty: 30 2RF hydroxyzine HCl 25 mg tablet 25 mg PO TID PRN (Reason: anxiety) 30 Days Qty: 90 0RF cephalexin 500 mg capsule 500 mg PO QID 7 Days Qty: 28 0RF hydrocodone-acetaminophen 5-325 mg tablet 1 tab PO BID PRN (Reason: severe pain) Qty: 10 0RF Rx Instructions: Partial Fill upon patient request; take ONLY NEEDED for SEVERE PAIN amoxicillin 875 mg tablet 875 mg PO TID Qty: 21 0RF tramadol 50 mg tablet 50 mg PO TID PRN (Reason: pain) 7 Days Qty: 20 0RF nystatin 100,000 unit/mL suspension 500,000 unit PO QID 7 Days Qty: 140 0RF Rx Instructions: administer 1/2 of dose in each side of the mouth, swish for as long as possible, then swallow medroxyprogesterone [Depo-Provera] 150 mg/mL suspension 150 mg IM Q12W Qty: 1 5RF Stand Alone Forms: Against Medical Advice
[2023-10-14 14:23] LABS: MANUAL DIFF FLAG NO
[2023-10-14 14:25] LABS: Basophils Percent Auto 0.6 % (0-2); Eosinophils Absolute Auto 0.1 X10*3/uL (0.0-0.4); Eosinophils Percent Auto 1.5 % (0-4); Hematocrit 43.2 % (37.0-47.0); Hemoglobin 14.8 g/dl (12.0-16.0); Imm Gran Abs Auto 0.02 X10*3/uL (0.00-0.03); Imm Gran Pct Auto 0.3 % (0.0-0.4); Lymphocytes Absolute Auto 2.5 X10*3/uL (1.2-4.9); Lymphocytes Percent Auto 37.1 % (20-40); Mean Corpuscular HGB Conc 34.3 g/dl (31.0-35.0); Mean Corpuscular Hemoglobin 30.8 pg (27.0-33.0); Mean Platelet Volume 8.8 fL (9.4-12.3); Monocytes Absolute Auto 0.6 X10*3/uL (0.1-1.2); Monocytes Percent Auto 9.6 % (2-11); Neutrophils Absolute Auto 3.4 x10*3/uL (2.0-8.3); Neutrophils Percent Auto 50.9 % (45-73); Platelet Count 241 X10*3/uL (160-400); Red Cell Distribution Width 13.2 % (11.0-16.0); White Blood Count 6.7 X10*3/uL (4.8-10.8)
[2023-10-14 14:55] LABS: Alanine Aminotransferase 9 U/L (0-31); Albumin Level 4.5 g/dL (3.5-5.0); Alkaline Phosphatase 57 U/L (39-117); Anion Gap 9 (12-20); Aspartate Amino Transferase 19 U/L (5-31); Bilirubin Total 0.4 mg/dL (0.0-1.0); Blood Urea Nitrogen 8 mg/dL (9-16); Calcium 9.7 mg/dL (8.4-10.2); Carbon Dioxide 25 mmol/L (22-29); Chloride 106 mmol/L (96-108); Creatinine Clr Calc Pharmacy 85.3; Estimated Glomerular Filt Rate > 60; Glucose Random 88 mg/dL (60-115); HCG Quantitative < 2 mIU/mL; Potassium 4.1 mmol/L (3.3-5.1); Sodium 136 mmol/L (135-145); Total Protein 7.2 g/dL (6.5-8.0)
[2023-10-14 16:00] LABS: CT PCR NOT DETECTED (Not Detect.); NG PCR NOT DETECTED (Not Detect.)
[2023-10-14 16:14] VITALS: BP 106/70; PULSE 70; RESP 16; TEMP 36.9; O2SAT 100
[2023-10-14 18:00] LABS: Appearance Urine Cloudy; Color Urine Dark Yellow; Glucose Urine UA Negative (Negative); Leukocyte Esterase Urine Negative (Negative); Nitrite Urine Negative (Negative); Specific Gravity - Urine 1.025 (1.005-1.025); Urine Blood Negative (Negative); Urine Ketones Trace mg/dL (Negative); Urine Protein Negative (Neg-Trace)
--- NOTE | 2023-10-14 18:26 | PC.NURSE ---
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 [employer] Goldie called to beds[facility]E, risks discussed with pt. pt verbalizes understanding AMA paperwork assembled, this nurse witnessed d/c AMA form signed
== END 2023-10-14 18:29 | disposition left against medical advice (07) ==
PROVIDERS: Physician Assistant; Registered Nurse Emergency; Emergency Provider Emergency Medicine Emergency Medical Services; PCP Internal Medicine
DX: R10.2 Pelvic and perineal pain (principal); F17.210 Nicotine dependence, cigarettes, uncomplicated
CPT/HCPCS: 0353U; 36415; 74176; 76830; 76856; 80053; 81003; 83735; 84702; 85025; 93975; 99284

== ENCOUNTER 2024-02-11 16:32 | Outpatient (AMB) | payer OTHER, SELFPAY ==
[2024-02-11 16:34] VITALS: BP 98/76; PULSE 83; O2SAT 98; BMI 19.7
--- NOTE | 2024-02-11 16:34 | A.OFFPC_ITS ---
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 Required: No Accompanied by: Self / Same As Patient Allergies No Known Allergies [No Known Allergies*] Allergy (Verified 02/11/24 16:51) Medication List - Last Reconciled 02/11/24 by Juan Leal MD [id number] 50-325-40 mg 1 tab PO Q6H PRN hydroxyzine HCl 25 mg PO TID PRN 30 days Tobacco use date assessed: 02/11/24 Dental Screening Dental Screen Date: 02/11/24 Did you have a dental visit in the last 12 months?: Yes Did you have a dental problem in the last 6 months where you did not have access to dental care?: No Was dental information given to patient?: Patient has dentist HPI follow up HPI Details Patient comes in today for her follow up visit - has not been back since October 2022 States that she stopped taking her Sertraline after 1 to 2 months, as she felt that she was experiencing more bad days than good in terms of her anxiety while on the medication She is currently still experiencing a lot of anxiety often and thinks that a lot of her anxiety is also work-related and due to increased stress Patient also appears to have lost a lot of weight since her last visit States that she does not really have a good appetite often, especially when her anxiety gets worked up and forcing herself to eat ends up making her feel nauseous She denies any dizziness; still has on and off headaches but her current meds help relieve them promptly Denies any chest pains, no SOB No vomiting, no abdominal pain and no change in bowel habits noted She did go to the ER in October 2023 for left lower abdominal pain and her work ups done did not reveal any definitive cause of her symptoms at the time although her abdominal / pelvic CT done at the time showed some findings suggestive of pelvic congestion [facility] Medical History Family history of breast cancer Fibroadenoma Smoker Left ovarian cyst Ovarian cyst History of migraine Surgical History Hx of section Family History Paternal Aunt Breast cancer Father Hypertension High cholesterol Mother Hypertension High cholesterol Social History Housing: Apartment Alcohol intake: current Alcohol intake frequency: holidays/special occasions only Patient Tobacco Use Status: Current everyday Tobacco user Tobacco use type: Cigarette Cigarettes Per Day: 7 Second Hand Smoke Exposure: Yes service: No Current occupational status: employed Gender identity: Female Cognitive needs: No Hearing needs: No Vision needs: No Female Reproductive History Menstrual Age of Menarche: 11 Questionnaire PHQ-9 Over the last 2 weeks, how often have you been bothered by any of the following problems? 1. Little interest or pleasure in doing things: several days 2. Feeling down, depressed, or hopeless: several days 3. Trouble falling or staying asleep, or sleeping too much: several days 4. Feeling tired or having little energy: several days 5. Poor appetite or overeating: not at all 6. Feeling bad about yourself - or that you are a failure or have let yourself or your family down: not at all 7. Trouble concentrating on things, such as reading the newspaper or watching television: not at all 8. Moving or speaking so slowly that other people could have noticed. Or the opposite - being so fidgety or restless that you have been moving around a lot more than usual: not at all 9. Thoughts that you would be better off or of hurting yourself in some way: not at all Total score: 4 Depression Screening Interpretation: Positive Depression Screening Follow-up: Existing condition and Change in Medication Depression Screening Done: Yes 93484 - PHQ-9 Billing: Yes Source: Developed by Drs. Dallas Pagan, Miryam Noriega, Adonis Blackman and colleagues, with an educational huber from [employer]. Thrive Questionnaire Date Thrive assessed: 02/11/24 I am a: Patient What is your living situation today?: I have a steady place to live Within the past 12 months, did the food you bought not last and you didn't have the money to get more?: Never true Within the past 12 months, did you worry whether your food would run out before you got money to buy more?: Never true Do you have trouble paying for medicines?: No Do you have trouble getting transportation to medical appointments?: No Do you have trouble paying your heating and electricity bill?: No Do you have trouble taking care of your child, family member or friend?: No Do you have trouble with day-to-day activities such as bathing, preparing meals, shopping, managing finances, etc.?: No Are you currently unemployed and looking for a job?: No Are you interested in more education?: No Please select the resources that you would like help with: None Currently or been in a relationship where the following occur: no concerns reported THRIVE Score: 0 AUDIT C Alcohol Use Questionnaire (AUDIT-C) 1. How often do you have a drink containing alcohol?: Monthly or less 2. How many drinks containing alcohol do you have on a typical day when you are drinking?: 1 or 2 3. How often do you have six or more drinks on one occasion?: Never Total Score: 1 Score Reviewed/Action Taken: Yes LALITO-7 AMB Questionnaire LALITO-7 Date LALITO - 7 assessed: 02/11/24 Feeling nervous, anxious, or on edge: 2 = More than half the days Not being able to stop or control worryin = Several days Worrying too much about different things: 2 = More than half the days Trouble relaxin = Several days Being so restless that it is hard to sit still: 3 = Nearly every day Becoming easily annoyed or irritable: 1 = Several days Feeling afraid as if something awful might happen: 0 = Not at all Total LALITO-7 score (0-4 normal; 5-9 mild; 10-14 moderate; 15-21 severe): 10 Source: Developed by Drs. Dallas Pagan, Miryam Noriega, Adonis Blackman and colleagues, with an educational huber from [employer]. Review of Systems Const Denies chills, Reports fatigue, Denies fever(s), Reports headache(s) (on and off), Reports poor appetite (at times) and Reports weight loss ENT Denies dysphagia, Denies dizziness, Denies otalgia, Reports headache(s) (on and off), Denies neck pain, Denies odynophagia and Denies sore throat Card Denies chest pain, Denies rapid heart rate, Denies palpitations and Denies dyspnea Resp Denies chest congestion, Denies cough and Denies dyspnea GI Denies abdominal pain, Denies constipation, Denies dysphagia, Denies heartburn, Denies diarrhea, Reports nausea (associated with headaches), Denies odynophagia and Denies vomiting Denies difficulty voiding, Denies nocturia and Denies urinary urgency Musc Denies back pain and Denies neck pain Neuro Denies dizziness and Reports headache(s) (on and off) Psych Reports anxiety (increased) and Reports depression Endo Reports fatigue and Denies palpitations Physical exam (Primary Care) Vital Signs: Last Vital Signs Pulse 83 02/11/24 16:34 BP 98/76 02/11/24 16:34 Pulse Ox 98 02/11/24 16:34 Oxygen Delivery Method Room Air 02/11/24 16:34 BMI result Body Mass Index 19.7 Tobacco/Smoking Status: Tobacco use Status Tobacco use date assessed 02/11/24 02/11/24 16:36 Patient Tobacco Use Status Current everyday Tobacco 02/11/24 16:36 Tobacco use type Cigarette 02/11/24 16:36 PHQ-9: PHQ-9 Score PHQ-9: Total score 4 02/11/24 16:36 Depression Screening Interpretation: Positive Depression Screening Follow-up: Existing condition and Change in Medication Thrive Assessment: Date of Thrive Assessment Date Thrive assessed 02/11/24 02/11/24 16:36 Currently or been in a relationship where the following occur: no concerns reported Const General: no acute distress and alert HENMT Ears: TM's normal bilaterally and EAC's normal Throat: Yes posterior oropharynx normal and Yes tonsils normal (no TP congestion) Neck Neck: Yes no lymphadenopathy and Yes supple Thyroid: Thyroid normal Resp Auscultation: clear to auscultation bilaterally, no rales and no wheezes Cardio Rate: regular rate Rhythm: regular rhythm Heart sounds: no murmurs GI Palpation (GI): Soft to palpation and nontender Auscultation: normal bowel sounds General: Yes no CVA tenderness Back/Spine/Pelvis Back: no CVA tenderness Skin Rashes: no rashes Extrem General: Yes no clubbing, cyanosis or edema Assessment and Plan Assessment & Plan (1) Migraine: Code(s): G43.909 - Migraine, unspecified, not intractable, without status migrainosus Qualifiers: Migraine type: with aura Status migrainosus presence: without status migrainosus Intractability: not intractable Qualified Code(s): G43.109 - Migraine with aura, not intractable, without status migrainosus Plan: Reinforced avoidance of any potential migraine triggers Continue Sumatriptan 50 mg QD PRN as instructed Discussed again the need to consider prophylactic Tx if her headaches progress or get worse (2) Anxiety: Code(s): F41.9 - Anxiety disorder, unspecified Plan: States that her anxiety symptoms have increased again lately Was initially doing well on Sertraline 50 mg QD but started having more bad days than good while still on Sertraline and she eventually stopped taking this early last year Will start her for now on Escitalopram 10 mg QD; can continue Hydroxyzine 25 mg TID PRN although she states that taking this makes her feel drowsy and somewhat tired Will again consider referring her for counseling and/or to psychiatry if her symptoms progress or get worse (3) Smoker: Code(s): F17.200 - Nicotine dependence, unspecified, uncomplicated Plan: Counseled again on smoking cessation (4) Weight loss, unintentional: Code(s): R63.4 - Abnormal weight loss Plan: Patient feels that this is likely related to her increased anxiety lately, which in turn is affecting the way she eats and how much she eats Will send her for some labs DI for further evaluation Plan Follow up in 3 months Orders: Orders Complete Blood Count Auto Diff Today D64.9 - Anemia, unspecified, F41.9 - Anxiety disorder, unspecified, R63.4 - Abnormal weight loss Comprehensive Met. Panel Today F41.9 - Anxiety disorder, unspecified, R63.4 - Abnormal weight loss TSH reflex Free T4 Today E78.00 - Pure hypercholesterolemia, unspecified, F41.9 - Anxiety disorder, unspecified, R63.4 - Abnormal weight loss UA CC w/rflx Micro + Cult Today F41.9 - Anxiety disorder, unspecified, R30.0 - Dysuria, R63.4 - Abnormal weight loss Vitamin D 25-OH Total Today E55.9 - Vitamin D deficiency, unspecified, F41.9 - Anxiety disorder, unspecified, R63.4 - Abnormal weight loss Medications: New escitalopram oxalate 10 mg PO DAILY 30 days 30 tabs 3RF Coding Level of Care Code Est Pt Level 4 (84878) Diagnoses Migraine with aura and without status migrainosus, not intractable G43.109 Migraine type: with aura Status migrainosus presence: without status migrainosus Intractability: not intractable Anxiety F41.9 Smoker F17.200 Weight loss, unintentional R63.4
== END 2024-02-11 17:04 | disposition home or self-care (01) ==
PROVIDERS: PCP Internal Medicine; Visit Provider Internal Medicine
DX: G43.109 Migraine with aura, not intractable, without status migrainosus (principal); F41.9 Anxiety disorder, unspecified; F17.200 Nicotine dependence, unspecified, uncomplicated; R63.4 Abnormal weight loss
CPT/HCPCS: 99214

== ENCOUNTER 2024-05-03 12:10 | Outpatient (REF) | payer OTHER, SELFPAY ==
[2024-05-03 13:09] LABS: Appearance Urine Turbid; Color Urine Dark Yellow; Glucose Urine UA Negative (Negative); Leukocyte Esterase Urine Negative (Negative); Nitrite Urine Negative (Negative); PH 5.5 (5.0-9.0); Specific Gravity - Urine >= 1.030 (1.005-1.025); Urine Blood Negative (Negative); Urine Ketones Trace mg/dL (Negative); Urine Protein Trace mg/dL (Neg-Trace)
[2024-05-03 13:15] LABS: MANUAL DIFF FLAG NO
[2024-05-03 13:21] LABS: Basophils Absolute Auto 0.1 X10*3/uL (0.0-0.2); Basophils Percent Auto 0.7 % (0-2); Eosinophils Absolute Auto 0.1 X10*3/uL (0.0-0.4); Eosinophils Percent Auto 1.6 % (0-4); Hematocrit 43.7 % (37.0-47.0); Hemoglobin 14.7 g/dl (12.0-16.0); Imm Gran Abs Auto 0.01 X10*3/uL (0.00-0.03); Imm Gran Pct Auto 0.1 % (0.0-0.4); Lymphocytes Absolute Auto 2.8 X10*3/uL (1.2-4.9); Lymphocytes Percent Auto 36.1 % (20-40); Mean Corpuscular HGB Conc 33.6 g/dl (31.0-35.0); Mean Corpuscular Hemoglobin 31.5 pg (27.0-33.0); Mean Corpuscular Volume 93.6 fL (80.0-98.0); Monocytes Absolute Auto 0.6 X10*3/uL (0.1-1.2); Monocytes Percent Auto 8.1 % (2-11); Neutrophils Absolute Auto 4.1 x10*3/uL (2.0-8.3); Neutrophils Percent Auto 53.4 % (45-73); Platelet Count 252 X10*3/uL (160-400); Red Blood Count 4.67 X10*6/uL (4.20-5.50); Red Cell Distribution Width 13.6 % (11.0-16.0); White Blood Count 7.6 X10*3/uL (4.8-10.8)
[2024-05-03 14:19] LABS: Alanine Aminotransferase 14 U/L (0-31); Albumin Level 4.6 g/dL (3.5-5.0); Alkaline Phosphatase 47 U/L (39-117); Anion Gap 11 (12-20); Aspartate Amino Transferase 20 U/L (5-31); Bilirubin Total 0.6 mg/dL (0.0-1.0); Blood Urea Nitrogen 12 mg/dL (9-16); Calcium 9.9 mg/dL (8.4-10.2); Carbon Dioxide 25 mmol/L (22-29); Chloride 106 mmol/L (96-108); Estimated Glomerular Filt Rate > 60; Glucose Random 91 mg/dL (60-115); Potassium 3.4 mmol/L (3.3-5.1); Sodium 139 mmol/L (135-145); TSH reflex Free T4 1.53 uIU/mL (0.32-4.0); Total Protein 7.2 g/dL (6.5-8.0); Vitamin D 25-OH Total 35.3 ng/mL (>30)
== END 2024-05-03 12:11 | disposition home or self-care (01) ==
LOC: HO.10HDL 12:10
PROVIDERS: Visit Provider Internal Medicine
DX: D64.9 Anemia, unspecified (principal); R63.4 Abnormal weight loss; F41.9 Anxiety disorder, unspecified; E78.00 Pure hypercholesterolemia, unspecified; R30.0 Dysuria; E55.9 Vitamin D deficiency, unspecified
CPT/HCPCS: 36415; 80053; 81003; 82306; 84443; 85025

== ENCOUNTER 2024-05-21 14:18 | Outpatient (AMB) | payer OTHER, SELFPAY ==
[2024-05-21 14:19] VITALS: BP 92/60; PULSE 79; O2SAT 98; BMI 18.6
--- NOTE | 2024-05-21 14:19 | MHC.PC.OV ---
Vital Signs 05/21/24 14:19 Height 5 ft Weight 95 lb 0.2 oz BMI 18.6 BP 92/60 Blood Pressure Location Lt brachial Position Sitting Pulse 79 Pulse Source Pulse Oximeter Pulse Oximetry (%) 98 Oxygen Delivery Method Room Air Intake Visit Reasons: anxiety, weight loss Intake Note: Technical Training Coordinator Required: No Allergies No Known Allergies [No Known Allergies*] Allergy (Verified 05/21/24 15:11) Medication List - Last Reconciled 05/21/24 by Juan Leal MD [id number] 50-325-40 mg 1 tab PO Q6H PRN ciprofloxacin HCl (Cipro) 500 mg PO BID 7 days escitalopram oxalate 10 mg PO DAILY 30 days hydrocodone-acetaminophen 5-325 mg 1 tab PO BID PRN 5 days hydroxyzine HCl 25 mg PO TID PRN 30 days metronidazole 500 mg PO TID 7 days tizanidine 4 mg PO Q8H PRN 10 days Tobacco use date assessed: 05/21/24 Dental Screening Dental Screen Date: 02/11/24 HPI anxiety, weight loss HPI Details Patient comes in today complaining of recurrent lower abdominal pain and frequent bloating lately Adds that she has been experiencing on and off rectal bleeding for the past 2 days Notes that her stools are loose at times and her left lower abdominal pain sometimes feels worse when she is moving her bowels Relates that she has been experiencing increased fatigue lately Feels that she has also lost a lot of weight over the past few weeks and is concerned about this She denies any fever or dizziness lately; still has on and off headaches Denies any chest pains, no SOB States that she's had no nausea/vomiting lately despite her recent abdominal symptoms She also needs her FMLA forms filled out again - needs to get them done every year [facility] Medical History Family history of breast cancer Fibroadenoma Smoker Left ovarian cyst Ovarian cyst History of migraine Surgical History Hx of section Family History Paternal Aunt Breast cancer Father Hypertension High cholesterol Mother Hypertension High cholesterol Social History Housing: Apartment Alcohol intake: current Alcohol intake frequency: holidays/special occasions only Patient Tobacco Use Status: Current everyday Tobacco user Tobacco use type: Cigarette Cigarettes Per Day: 7 Second Hand Smoke Exposure: Yes service: No Current occupational status: employed Gender identity: Female Cognitive needs: No Hearing needs: No Vision needs: No Female Reproductive History Menstrual Age of Menarche: 11 Questionnaire PHQ-9 Over the last 2 weeks, how often have you been bothered by any of the following problems? 1. Little interest or pleasure in doing things: several days 2. Feeling down, depressed, or hopeless: several days 3. Trouble falling or staying asleep, or sleeping too much: several days 4. Feeling tired or having little energy: several days 5. Poor appetite or overeating: not at all 6. Feeling bad about yourself - or that you are a failure or have let yourself or your family down: not at all 7. Trouble concentrating on things, such as reading the newspaper or watching television: not at all 8. Moving or speaking so slowly that other people could have noticed. Or the opposite - being so fidgety or restless that you have been moving around a lot more than usual: not at all 9. Thoughts that you would be better off or of hurting yourself in some way: not at all Total score: 4 Depression Screening Interpretation: Positive Depression Screening Follow-up: Existing condition and In treatment Depression Screening Done: Yes 56471 - PHQ-9 Billing: Yes Source: Developed by Drs. Dallas Pagan, Miryam Noriega, Adonis Blackman and colleagues, with an educational huber from [employer]. Thrive Questionnaire Date Thrive assessed: 02/11/24 I am a: Patient What is your living situation today?: I have a steady place to live Within the past 12 months, did the food you bought not last and you didn't have the money to get more?: Never true Within the past 12 months, did you worry whether your food would run out before you got money to buy more?: Never true Do you have trouble paying for medicines?: No Do you have trouble getting transportation to medical appointments?: No Do you have trouble paying your heating and electricity bill?: No Do you have trouble taking care of your child, family member or friend?: No Do you have trouble with day-to-day activities such as bathing, preparing meals, shopping, managing finances, etc.?: No Are you currently unemployed and looking for a job?: No Are you interested in more education?: No Please select the resources that you would like help with: None Currently or been in a relationship where the following occur: no concerns reported THRIVE Score: 0 AUDIT C Alcohol Use Questionnaire (AUDIT-C) 1. How often do you have a drink containing alcohol?: Monthly or less 2. How many drinks containing alcohol do you have on a typical day when you are drinking?: 1 or 2 3. How often do you have six or more drinks on one occasion?: Never Total Score: 1 Score Reviewed/Action Taken: Yes LALITO-7 AMB Questionnaire LALITO-7 Date LALITO - 7 assessed: 02/11/24 Feeling nervous, anxious, or on edge: 2 = More than half the days Not being able to stop or control worryin = Several days Worrying too much about different things: 2 = More than half the days Trouble relaxin = Several days Being so restless that it is hard to sit still: 3 = Nearly every day Becoming easily annoyed or irritable: 1 = Several days Feeling afraid as if something awful might happen: 0 = Not at all Total LALITO-7 score (0-4 normal; 5-9 mild; 10-14 moderate; 15-21 severe): 10 Source: Developed by Drs. Dallas Pagan, Miryam Noriega, Adonis Blackman and colleagues, with an educational huber from [employer]. LALITO-7 Assessment Billing LALITO-7 Assessment Tool: LALITO-7 Assessment 55153 Review of Systems Const Denies chills, Reports fatigue, Denies fever(s), Reports headache(s) (on and off), Reports poor appetite (at times) and Reports weight loss ENT Denies dysphagia, Denies dizziness, Denies otalgia, Reports headache(s) (on and off), Denies neck pain, Denies odynophagia and Denies sore throat Card Denies chest pain, Denies rapid heart rate, Denies palpitations and Denies dyspnea Resp Denies chest congestion, Denies cough and Denies dyspnea GI Reports abdominal pain (recurrent lately, over the lower abdomen, especially on the left side), Reports hematochezia (at times in the past couple of days), Denies constipation, Denies dysphagia, Denies heartburn, Reports loose stools (on and off lately), Reports nausea (associated with headaches), Denies odynophagia and Denies vomiting Denies difficulty voiding, Denies nocturia and Denies urinary urgency Musc Denies back pain and Denies neck pain Skin/Breast Denies rash Neuro Denies dizziness and Reports headache(s) (on and off) Psych Reports anxiety and Reports depression Endo Reports fatigue and Denies palpitations Physical exam (Primary Care) Vital Signs: Last Vital Signs Pulse 79 05/21/24 14:19 BP 92/60 05/21/24 14:19 Pulse Ox 98 05/21/24 14:19 Oxygen Delivery Method Room Air 05/21/24 14:19 BMI result Body Mass Index 18.6 Tobacco/Smoking Status: Tobacco use Status Tobacco use date assessed 05/21/24 05/21/24 14:20 Patient Tobacco Use Status Current everyday Tobacco 05/21/24 14:20 Tobacco use type Cigarette 05/21/24 14:20 PHQ-9: PHQ-9 Score PHQ-9: Total score 4 05/21/24 15:01 Depression Screening Interpretation: Positive Depression Screening Follow-up: Existing condition and In treatment Thrive Assessment: Date of Thrive Assessment Date Thrive assessed 02/11/24 05/21/24 14:20 Currently or been in a relationship where the following occur: no concerns reported Const General: no acute distress and alert HENMT Throat: Yes posterior oropharynx normal and Yes tonsils normal (no TP congestion) Neck Neck: Yes no lymphadenopathy and Yes supple Thyroid: Thyroid normal Resp Auscultation: clear to auscultation bilaterally, no rales and no wheezes Cardio Rate: regular rate Rhythm: regular rhythm Heart sounds: no murmurs GI Palpation (GI): Soft to palpation, Tenderness to palpation present (GI) in the LLQ, no guarding, not rigid and No Rebound tenderness present Auscultation: normal bowel sounds General: Yes no CVA tenderness Back/Spine/Pelvis Back: no CVA tenderness Skin Rashes: no rashes Extrem General: Yes no clubbing, cyanosis or edema Assessment and Plan Assessment & Plan (1) Left lower quadrant abdominal pain: Code(s): R10.32 - Left lower quadrant pain Plan: Will send patient for some labs DI for further evaluation Have advised her that her recent symptoms suggest diverticulitis as the most likely cause Will send her for abdominal and pelvic CT as well for further evaluation Will start her emprically in the meantime on Cipro 500 mg BID x 7 days and Flagyl 500 mg TID x 7 days Have advised her to seek medical attention at any time if she feels that her symptoms are progressively getting worse despite joanna current Rx (2) Rectal bleeding: Code(s): K62.5 - Hemorrhage of anus and rectum Plan: Will send her for some labs DI, including a CBC, for further evaluation (3) Weight loss, unintentional: Code(s): R63.4 - Abnormal weight loss Plan: Will check labs Advised again (as before) that this may also be likely related to her increased anxiety lately (4) Migraine: Code(s): G43.909 - Migraine, unspecified, not intractable, without status migrainosus Qualifiers: Migraine type: with aura Status migrainosus presence: without status migrainosus Intractability: not intractable Qualified Code(s): G43.109 - Migraine with aura, not intractable, without status migrainosus Plan: Reinforced avoidance of any potential migraine triggers Continue Sumatriptan 50 mg QD PRN as instructed Discussed again the need to consider prophylactic Tx if her headaches progress or get worse (5) Anxiety: Code(s): F41.9 - Anxiety disorder, unspecified Plan: Continue Escitalopram 10 mg QD; can continue Hydroxyzine 25 mg TID PRN although she states that taking this makes her feel drowsy and somewhat tired Will again consider referring her for counseling and/or to psychiatry if her symptoms progress or get worse (6) Smoker: Code(s): F17.200 - Nicotine dependence, unspecified, uncomplicated Plan: Counseled again on smoking cessation Plan Follow up in 3 months Orders: Orders Complete Blood Count Auto Diff 05/21/24 D64.9 - Anemia, unspecified, R10.32 - Left lower quadrant pain Comprehensive Met. Panel 05/21/24 R10.32 - Left lower quadrant pain Erythrocyte Sedimentation Rate 05/21/24 R10.32 - Left lower quadrant pain CT abdomen pelvis wo IV con 05/21/24 K62.5 - Hemorrhage of anus and rectum, R10.32 - Left lower quadrant pain UA CC w/rflx Micro + Cult 05/21/24 R10.32 - Left lower quadrant pain, R30.0 - Dysuria Medications: New ciprofloxacin HCl (Cipro) 500 mg PO BID 7 days 14 tabs 0RF metronidazole 500 mg PO TID 7 days 21 tabs 0RF Coding Level of Care Code Est Pt Level 4 (22097) Diagnoses Left lower quadrant abdominal pain R10.32 Rectal bleeding K62.5 Weight loss, unintentional R63.4 Migraine with aura and without status migrainosus, not intractable G43.109 Migraine type: with aura Status migrainosus presence: without status migrainosus Intractability: not intractable Anxiety F41.9 Smoker F17.200 Additional Codes LALITO-7 Assessment Billing - LALITO-7 Assessment Tool: LALITO-7 Assessment 68090 ([id number])
== END 2024-05-21 15:14 | disposition home or self-care (01) ==
PROVIDERS: PCP Internal Medicine; Visit Provider Internal Medicine
DX: R10.32 Left lower quadrant pain (principal); R63.4 Abnormal weight loss; F41.9 Anxiety disorder, unspecified; K62.5 Hemorrhage of anus and rectum; G43.109 Migraine with aura, not intractable, without status migrainosus; F17.200 Nicotine dependence, unspecified, uncomplicated
CPT/HCPCS: 96127; 99214

== ENCOUNTER 2024-06-07 13:04 | Emergency (ER) | payer OTHER, SELFPAY ==
[2024-06-07 14:03] VITALS: BP 124/64; PULSE 63; RESP 18; TEMP 36.8; O2SAT 99; BMI 16.5
== END 2024-06-07 19:50 | disposition left against medical advice (07) ==
PROVIDERS: Emergency Provider Emergency Medicine; PCP Internal Medicine
DX: M54.50 Low back pain, unspecified (principal)
CPT/HCPCS: 99281

== ENCOUNTER 2024-07-14 16:29 | Emergency (ER) | payer OTHER, SELFPAY ==
--- NOTE | ~2024-07-14 | US_ITS ---
EXAMINATION: US OBSTETRICAL ULTRASOUND CLINICAL INFORMATION: Abdominal pain COMPARISON: Pelvic ultrasound 10/14/2023 LMP: 06/18/2024. Gestational age by maternal dates is 3 weeks 5 days. Estimated date of delivery by maternal dates is 03/25/2025. TECHNIQUE: Ultrasound of the maternal pelvis is performed using transabdominal and transvaginal transducers. Transvaginal imaging is performed due to inadequate visualization transabdominally. M-mode Doppler is also performed. FINDINGS: There is a single intrauterine gestational sac with visible yolk sac and likely a pole. cardiac activity is visible on ultrasound alone is not documented by M mode on the current exam. There is no significant subchorionic hemorrhage or hematoma. HR: The visible at ultrasound but unable to document on M-mode CRL (crown rump length): 0.16 cm (6 weeks 3 days +/- 4 days). CHELE (estimated date of delivery): 03/06/2025 +/- 4 days. MATERNAL ADNEXA: The right maternal ovary measures 4.0 x 3.0 x 3.0 cm. There is a corpus luteal cyst measuring 2.5 x 2.3 x 2.2 cm The left maternal ovary measures 2.3 x 2.2 x 1.6 cm. There is no significant maternal adnexal mass. No maternal pelvic ascites. US/US OB pelvic and transvaginal IMPRESSION: 1. Single intrauterine gestation with ultrasound gestational age of 6 weeks 3 days +/- 4 days. The pole is visualized with cardiac activity visualized although this could not be documented on M-mode. A short interval follow-up ultrasound can be obtained to document cardiac activity. 2. Estimated date of delivery is 03/06/2025 +/- 4 days. 3. No maternal adnexal mass or pelvic ascites.
--- NOTE | 2024-07-14 16:46 | ED_ITS ---
HPI - General Adult General Chief complaint: Vaginal Bleeding Stated complaint: 4 weeks preg - spotting and cramping Time Seen by Provider: 07/14/24 18:51 Source: patient and RN notes reviewed Mode of arrival: ambulatory Limitations: no limitations History of Present Illness ED Provider: Erendira Bentley PA-C HPI narrative: This is a 34-year-old female, , approximately 4 weeks , who presents emergency department with complaints vaginal spotting, abdominal cramping since today. Patient states that her last menstrual period was approximately the 2nd week of May. Patient states that she no longer has the cramping, states that the vaginal spotting is only when she is wiping. Denies any pad saturation. She has follow-up with her OBGYN on Friday. No urinary symptoms. Denies any fevers, chills, chest pain, shortness of breath, urinary symptoms. No constipation or diarrhea. No other complaints or concerns at this time. MD complaint: Vaginal bleeding, abdominal cramping Onset (ago): hour(s) Relieving factors: none Exacerbating factors: none Associated symptoms: denies other symptoms Treatments prior to arrival: none Related Data Previous Rx's ?Medication ?Instructions ?Recorded hydroxyzine HCl 25 mg tablet 25 mg PO TID PRN anxiety 30 days 07/08/23 #90 tabs tizanidine 4 mg tablet 4 mg PO Q8H PRN muscle spasms/low 04/01/24 back pain 10 days #30 tabs ojvqitikzd-tsposmsxflkbd-axzzpwuk 1 tab PO Q6H PRN headache #30 tabs 05/07/24 50 mg-325 mg-40 mg tablet escitalopram oxalate 10 mg tablet 10 mg PO DAILY 30 days #30 tabs 05/07/24 ciprofloxacin HCl 500 mg tablet 500 mg PO BID 7 days #14 tabs 05/21/24 (Cipro) metronidazole 500 mg tablet 500 mg PO TID 7 days #21 tabs 05/21/24 hydrocodone 5 mg-acetaminophen 325 1 tab PO BID PRN severe pain 5 07/02/24 mg tablet days #10 tabs tramadol 50 mg tablet 50 mg PO TID PRN pain #30 tabs 07/09/24 Allergies Allergy/AdvReac Type Severity Reaction Status Date / Time No Known Allergies Allergy Verified 07/14/24 16:48 [No Known Allergies*] Review of Systems 2 Review of Systems: Yes all other systems are reviewed and are negative Constitutional: Constitutional: Reports as per [facility] Past Medical History Medical History Family history of breast cancer Fibroadenoma Smoker Left ovarian cyst Ovarian cyst History of migraine Surgical History Hx of section Family History Family History Paternal Aunt Breast cancer Father Hypertension High cholesterol Mother Hypertension High cholesterol Social History Social History Housing: Apartment Alcohol intake: current Alcohol intake frequency: holidays/special occasions only Patient Tobacco Use Status: Current everyday Tobacco user Tobacco use type: Cigarette Cigarettes Per Day: 7 Second Hand Smoke Exposure: Yes Advance Directives: No Advance Directives Information Provided: No service: No Current occupational status: employed Gender identity: Female Cognitive needs: No Hearing needs: No Vision needs: No Physical Exam ED Vital Signs: Vital Signs - 24 hr 07/14/24 16:47 07/14/24 18:43 Temperature 98.4 F 97.8 F Pulse Rate 72 71 Respiratory Rate 18 Blood Pressure 107/73 118/67 Pulse Oximetry 98 100 Oxygen Delivery Method Room Air Room Air BMI result Body Mass Index 18.3 Const General: cooperative, comfortable and no acute distress Orientation/consciousness: patient oriented x3 Limitations: no limitations [facility] Head: Yes normal to inspection, Yes normocephalic and Yes atraumatic Ears: hearing grossly normal bilaterally General nose exam: Normal external nose present Face and sinus: Yes normal facial exam Mouth: Normal oral and palatal mucosa present, oropharynx normal and moist mucous membranes Throat: Yes posterior oropharynx normal Eyes General: appearance normal, both eyes and all related structures Eyelids: Yes eyelids normal Conjunctivae: conjunctivae normal Sclerae: sclerae normal Pupils: Equal, round and reactive pupils present EOM: EOMs intact bilaterally Neck Neck: Yes normal visual inspection, Yes full ROM and Yes no lymphadenopathy Lymphatic: no lymphadenopathy noted Chest Chest palpation & inspection: normal inspection of the chest Resp Effort & Inspection: normal respiratory effort and able to speak in complete sentences Auscultation: clear to auscultation bilaterally, no crackles, no rales, no rhonchi and no wheezes Cardio Rate: regular rate Rhythm: regular rhythm Heart sounds: S1 normal heart sound present and S2 normal heart sound present GI Other: Abdomen is soft, nontender, nondistended Inspection: Yes normal to inspection Skin General skin exam: no rashes or lesions noted Trauma: no lacerations or abrasions Wounds: no wounds Neuro General: patient oriented x3 and moves all extremities Cranial nerves: Yes Equal, round and reactive pupils present Extrem General: Yes normal to inspection Right upper extremity: normal to inspection Left upper extremity: normal to inspection Right lower extremity: normal to inspection Left lower extremity: normal to inspection Course Course Course Narrative: This is an RME done by DELGADO Tran: Additional HPI, ROS, PE not included below will be deferred to primary provider. 34 year old G4A1P2 female with pmh of miscarriage at 1 month gestation presenting with complaints of abdominal pain (severity: 5/10) and spotting intermittently since 07/01. Pt states LMP was 06/18/2024. OBGYN is Shanti Dean at this facility. Appearance: Alert.? Oriented X3.? No acute cardiopulmonary distress distress.? Head: Normocephalic, atraumatic, no step-offs or deformities Neck: Normal inspection.? Neck supple.? CVS: Pulses normal.? Respiratory: No respiratory distress.? Skin: ? Normal skin color. Extremities: 5/5 strength to bilateral upper and lower extremities Neuro: Oriented X 3.? No motor deficit.? No sensory deficit. Medical Decision Making Medical Decision Making [facility] Narrative: This is a 34-year-old female, who presents emergency department with complaints of vaginal spotting, and cramping since today. She states that the cramping has resolved. She has a OBGYN appointment on Friday. She states that the cramping has resolved. States that spotting only occurs with wiping. Denies any significant vaginal bleeding. Labs were obtained, she has no anemia, chemistry within normal limits. Rh type positive. Ultrasound revealing single intrauterine gestation with ultrasound gestational age of 6 weeks 3 days +/-4 days. She has follow-up with her OBGYN, OBGYN is Shanti Dean at this facility, on Friday. I advised patient to call her OBGYN tomorrow. She was given strict return precautions regarding this visit. She understands and agrees with plan. Patient stable for discharge Differential Diagnosis Differential Diagnoses: The differential diagnosis associated with the presentation includes Abnormal uterine bleeding, , ectopic , threatened miscarriage Admission/Observation Consideration of admission/observation: Escalation of care including admission/observation considered Lab Data [facility] Lab Attestation statement: I reviewed the patient's lab results. See [facility] 07/14/24 16:58 07/14/24 16:58 Labs: Lab Results 07/14/24 Range/Units 16:58 WBC 9.1 (4.8-10.8) X10*3/uL RBC 4.46 (4.20-5.50) X10*6/uL Hgb 13.9 (12.0-16.0) g/dl Hct 40.2 (37.0-47.0) % MCV 90.1 (80.0-98.0) fL MCH 31.2 (27.0-33.0) pg MCHC 34.6 (31.0-35.0) g/dl RDW 13.2 (11.0-16.0) % Plt Count 258 (160-400) X10*3/uL MPV 8.4 L (9.4-12.3) fL Immature Gran % (Auto) 0.3 (0.0-0.4) % Neut % (Auto) 62.3 (45-73) % Lymph % (Auto) 26.1 (20-40) % [place] % (Auto) 9.3 (2-11) % Eos % (Auto) 1.4 (0-4) % Baso % (Auto) 0.6 (0-2) % Lymph # (Auto) 2.4 (1.2-4.9) X10*3/uL [place] # (Auto) 0.8 (0.1-1.2) X10*3/uL Eos # (Auto) 0.1 (0.0-0.4) X10*3/uL Baso # (Auto) 0.1 (0.0-0.2) X10*3/uL Abs Immat Gran (auto) 0.03 (0.00-0.03) X10*3/uL Absolute Neuts (auto) 5.7 (2.0-8.3) x10*3/uL Absolute Nucleated RBC 0.000 (0.0-0.012) X10*3/uL Nucleated RBC % (auto) 0.0 (0.0-0.2) /100WBC Sodium 134 L (135-145) mmol/L Potassium 3.8 (3.3-5.1) mmol/L Chloride 104 (96-108) mmol/L Carbon Dioxide 24 (22-29) mmol/L Anion Gap 10 L (12-20) BUN 11 (9-16) mg/dL Creatinine 0.63 (0.5-1.4) mg/dL Estim Creat Clear Calc 100.0 Estimated GFR > 60 Random Glucose 88 (60-115) mg/dL Calcium 9.4 (8.4-10.2) mg/dL Total Bilirubin 0.3 (0.0-1.0) mg/dL AST 22 (5-31) U/L ALT 19 (0-31) U/L Alkaline Phosphatase 49 (39-117) U/L Total Protein 7.3 (6.5-8.0) g/dL Albumin 4.6 (3.5-5.0) g/dL Beta HCG, Quant 05315 mIU/mL Blood Type A Positive Radiology Impression Discussion of test interpretation with radiology: I have reviewed the radiologist's reading. Radiologist Impression: US/US OB pelvic and transvaginal IMPRESSION: 1. Single intrauterine gestation with ultrasound gestational age of 6 weeks 3 days +/- 4 days. The pole is visualized with cardiac activity visualized although this could not be documented on M-mode. A short interval follow-up ultrasound can be obtained to document cardiac activity. 2. Estimated date of delivery is 03/06/2025 +/- 4 days. 3. No maternal adnexal mass or pelvic ascites. Dictated By: Dallas Brock MD Discharge Plan Discharge Clinical Impression: First-trimester bleeding Patient Disposition: Home, Self-Care Instructions: First Trimester (ED) Additional Instructions: You were seen in the emergency department due to vaginal bleeding and cramping. Your workup today was reassuring. Your ultrasound reveals a single intrauterine gestation measuring at the age of 6 weeks, 3 days +/-4 days. Estimated date of delivery is 03/06/2025 +/-4 days. Please call your OBGYN tomorrow in regards to this visit. Go to your appointment on Friday as scheduled. Drink plenty of fluids get plenty of rest. If you develop any worsening vaginal bleeding, worsening cramping, please immediately seek emergent care. If any new or worsening symptoms occur, please return. Prescriptions: No Action hydroxyzine HCl 25 mg tablet 25 mg PO TID PRN (Reason: anxiety) 30 Days Qty: 90 0RF tizanidine 4 mg tablet 4 mg PO Q8H PRN (Reason: muscle spasms/low back pain) 10 Days Qty: 30 0RF escitalopram oxalate 10 mg tablet 10 mg PO DAILY 30 Days Qty: 30 1RF nbznutqama-hrqwjaxebtjxx-nnjw 50-325-40 mg tablet 1 tab PO Q6H PRN (Reason: headache) Qty: 30 2RF hydrocodone-acetaminophen 5-325 mg tablet 1 tab PO BID PRN (Reason: severe pain) 5 Days Qty: 10 0RF Rx Instructions: Partial Fill upon patient request; take ONLY NEEDED for SEVERE PAIN tramadol 50 mg tablet 50 mg PO TID PRN (Reason: pain) Qty: 30 0RF ciprofloxacin HCl [Cipro] 500 mg tablet 500 mg PO BID 7 Days Qty: 14 0RF metronidazole 500 mg tablet 500 mg PO TID 7 Days Qty: 21 0RF Print Language: Hungarian
[2024-07-14 16:47] VITALS: BP 107/73; PULSE 72; TEMP 36.9; O2SAT 98; BMI 18.3
[2024-07-14 17:03] LABS: MANUAL DIFF FLAG NO
[2024-07-14 17:06] LABS: Basophils Absolute Auto 0.1 X10*3/uL (0.0-0.2); Basophils Percent Auto 0.6 % (0-2); Eosinophils Absolute Auto 0.1 X10*3/uL (0.0-0.4); Eosinophils Percent Auto 1.4 % (0-4); Hematocrit 40.2 % (37.0-47.0); Hemoglobin 13.9 g/dl (12.0-16.0); Imm Gran Abs Auto 0.03 X10*3/uL (0.00-0.03); Imm Gran Pct Auto 0.3 % (0.0-0.4); Lymphocytes Absolute Auto 2.4 X10*3/uL (1.2-4.9); Lymphocytes Percent Auto 26.1 % (20-40); Mean Corpuscular HGB Conc 34.6 g/dl (31.0-35.0); Mean Corpuscular Hemoglobin 31.2 pg (27.0-33.0); Mean Corpuscular Volume 90.1 fL (80.0-98.0); Mean Platelet Volume 8.4 fL (9.4-12.3); Monocytes Absolute Auto 0.8 X10*3/uL (0.1-1.2); Monocytes Percent Auto 9.3 % (2-11); Neutrophils Absolute Auto 5.7 x10*3/uL (2.0-8.3); Neutrophils Percent Auto 62.3 % (45-73); Platelet Count 258 X10*3/uL (160-400); Red Blood Count 4.46 X10*6/uL (4.20-5.50); Red Cell Distribution Width 13.2 % (11.0-16.0); White Blood Count 9.1 X10*3/uL (4.8-10.8)
[2024-07-14 18:24] LABS: Alanine Aminotransferase 19 U/L (0-31); Albumin Level 4.6 g/dL (3.5-5.0); Alkaline Phosphatase 49 U/L (39-117); Anion Gap 10 (12-20); Aspartate Amino Transferase 22 U/L (5-31); Bilirubin Total 0.3 mg/dL (0.0-1.0); Blood Urea Nitrogen 11 mg/dL (9-16); Calcium 9.4 mg/dL (8.4-10.2); Carbon Dioxide 24 mmol/L (22-29); Chloride 104 mmol/L (96-108); Estimated Glomerular Filt Rate > 60; Glucose Random 88 mg/dL (60-115); Potassium 3.8 mmol/L (3.3-5.1); Sodium 134 mmol/L (135-145); Total Protein 7.3 g/dL (6.5-8.0)
[2024-07-14 18:43] VITALS: BP 118/67; PULSE 71; RESP 18; TEMP 36.6; O2SAT 100
[2024-07-14 19:56] VITALS: BP 0/0; PULSE 0; RESP 0; TEMP -17.7; TEMP 0; O2SAT 0
== END 2024-07-14 19:58 | disposition home or self-care (01) ==
PROVIDERS: Physician Assistant; Emergency Provider Internal Medicine; PCP Internal Medicine
DX: O20.9 Hemorrhage in early pregnancy, unspecified (principal); R10.2 Pelvic and perineal pain; Z3A.01 Less than 8 weeks gestation of pregnancy; Z79.899 Other long term (current) drug therapy
CPT/HCPCS: 36415; 76801; 76817; 80053; 84702; 85025; 86900; 86901; 99282; 99284

== ENCOUNTER 2024-07-16 14:38 | Outpatient (AMB) | payer OTHER, SELFPAY ==
[2024-07-16 14:55] VITALS: BP 110/62; BMI 21.5
--- NOTE | 2024-07-16 14:55 | A.OFFVIS_ITS ---
Vital Signs 07/16/24 14:55 Height 5 ft Weight 110 lb BMI 21.5 BP 110/62 Intake Visit Reasons: Positive Test/light spotting Backbreaker Required: No Information Interpreted: clinical only Purchasing Buyer: Purchasing Buyer Present Allergies No Known Allergies [No Known Allergies*] Allergy (Verified 07/16/24 14:56) Medication List - Last Reconciled 07/16/24 by Shanti Dean CNM djtorazixa-yztbrkipnzdlm-dgbz 50-325-40 mg 1 tab PO Q6H PRN tizanidine 4 mg PO Q8H PRN 10 days Is last menstrual period known: Yes Last menstrual period: 06/02/24 Do you need a note to return to daycare/school/sports/work: No HPI HPI Positive Test/light spotting: Details: Patient is here because she had had some spotting after doing home test she was not able to get in the day that she had called because she was still in transit from [place]. She then had more spotting after intercourse on Friday in night and she had a little bit more spotting Friday after work at the [facility] [facility] [employer] so she went to the emergency room and was seen near. She had a serum HCG which was 29,000 and a pelvic ultrasound which showed cardiac activity in about 6 weeks and 3 days. She did have some nausea and was having about saw the after eating some chicken yesterday also a little bit of constipation and bearing down and after that she had a little bit of bright red spotting as well today it is nothing there and she has never had any cramping. This is a planned she is very happy she has 2 children her 1st child was vaginal in her 2nd child was a because he was 9 lb. (she is tiny) She has been taking vitamins with folic acid in preparation for so she is already on them she is a little nauseous but she did not need anything for nausea in her other pregnancies and she does not feel she needs it now. [facility] Medical History Family history of breast cancer Fibroadenoma Smoker Left ovarian cyst Ovarian cyst History of migraine Surgical History Hx of section Family History Paternal Aunt Breast cancer Father Hypertension High cholesterol Mother Hypertension High cholesterol Social History Housing: Apartment Alcohol intake: current Alcohol intake frequency: holidays/special occasions only Patient Tobacco Use Status: Current everyday Tobacco user Tobacco use type: Cigarette Cigarettes Per Day: 7 Second Hand Smoke Exposure: Yes service: No Current occupational status: employed Gender identity: Female Cognitive needs: No Hearing needs: No Vision needs: No Female Reproductive History Menstrual Age of Menarche: 11 Duration of menses: <3 days Date of last menstrual period: 06/02/24 Total pregnancies: 3 Full term: 2 Date of last pap smear: 09/11/22 (negative) Physical Exam Vital Signs: Last Vital Signs BP 110/62 07/16/24 14:55 BMI result Body Mass Index 21.5 Results Reviewed Results Reviewed: Name: Snehal Addison Age/Sex: 34/F : 1990 Unit#: [id number] Attend Dr: Joesph Avila MD Re07/14/24 Status: DEP ER Location: [facility] Disch: SPEC : [id number] KARIN: 07/14/24 STATUS: COMP REQ : [id number] RECD: 07/14/24-[address]: Willie Tran COMP: 07/14/24-1823 ENTERED: 07/14/24-[address]: Juan Leal MD ORDERED: CMP, HCG Quant Test Result Flag Reference Sodium 134 L 135-145 mmol/L Potassium 3.8 3.3-5.1 mmol/L CL 104 96-108 mmol/L CO2 24 22-29 mmol/L Gap 10 L 12-20 BUN 11 9-16 mg/dL Creat 0.63 0.5-1.4 mg/dL Estimated CrCl 100.0 Provided height and weight: 165.1 cm, 49.895 kg. eGFR (calculated from the MDRD study equation) and eCrCl (calculated from the Cockcroft-Gault equation) are based on different parameters and may not yield comparable resu lts. If eCrCl result is absurd, please check patient's height/weight. EGFR > 60 NOTE: For -Maldivian individuals, multiply the result by 1.210. Chronic Kidney Disease: Estimated GFR < 60 mL/min/1.73m2 Severe Kidney Disease: Estimated GFR < 15 mL/min/1.73m2 Glucose, Random 88 60-115 mg/dL CA 9.4 8.4-10.2 mg/dL Total Bili 0.3 0.0-1.0 mg/dL AST (GOT) 22 5-31 U/L ALT (GPT) 19 0-31 U/L Protein, Total 7.3 6.5-8.0 g/dL Alb 4.6 3.5-5.0 g/dL Alk Phos 49 39-117 U/L HCG Quant 37736 mIU/mL Weeks post LMP Approximate hCG (Last Menstrual Period) Range (mIU/ml) 3 - 4 weeks 9 - 130 4 - 5 weeks 75 - 2,600 5 - 6 weeks 850 - 20,800 6 - 7 weeks 4000 - 100,200 7 - 12 weeks 11,500 - 289,000 12 - 16 weeks 18,300 - 137,000 16 - 29 weeks (2nd trimester) 1,400 - 53,000 29 - 41 weeks (3rd trimester) 940 - 60,000 The Novoa B-hCG assay is used for the early detection of ; it cannot be used to diagnose any condition unrelated to . If a B-hCG level is not supported by the clinical evidence, results should be confirmed by an alternative method (qualitative urine hCG, for example) . Patient: Snehal AddisonMR#: [id number]: 1990Acct:[id number]/Sex: 34 / FADM Date: 07/14/24Loc: [address] Dr: Ordering Physician: Willie Tran Date of Service: 07/14/24 Procedure(s): US OB pelvic and transvaginal Accession Number(s): [id number] cc: Juan Leal MD; Willie Tran~ EXAMINATION: US OBSTETRICAL ULTRASOUND CLINICAL INFORMATION: Abdominal pain COMPARISON: Pelvic ultrasound 10/14/2023 LMP: 06/18/2024. Gestational age by maternal dates is 3 weeks 5 days. Estimated date of delivery by maternal dates is 03/25/2025. TECHNIQUE: Ultrasound of the maternal pelvis is performed using transabdominal and transvaginal transducers. Transvaginal imaging is performed due to inadequate visualization transabdominally. M-mode Doppler is also performed. FINDINGS: There is a single intrauterine gestational sac with visible yolk sac and likely a pole. cardiac activity is visible on ultrasound alone is not documented by M mode on the current exam. There is no significant subchorionic hemorrhage or hematoma. HR: The visible at ultrasound but unable to document on M-mode CRL (crown rump length): 0.16 cm (6 weeks 3 days +/- 4 days). CHELE (estimated date of delivery): 03/06/2025 +/- 4 days. MATERNAL ADNEXA: The right maternal ovary measures 4.0 x 3.0 x 3.0 cm. There is a corpus luteal cyst measuring 2.5 x 2.3 x 2.2 cm The left maternal ovary measures 2.3 x 2.2 x 1.6 cm. There is no significant maternal adnexal mass. No maternal pelvic ascites. US/US OB pelvic and transvaginal IMPRESSION: 1. Single intrauterine gestation with ul trasound gestational age of 6 weeks 3 days +/- 4 days. The pole is visualized with cardiac activity visualized although this could not be documented on M-mode. A short interval follow-up ultrasound can be obtained to document cardiac activity. 2. Estimated date of delivery is 025 +/- 4 days. 3. No maternal adnexal mass or pelvic as cites. 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 , history with 2nd for 9 lb boy Code(s): Z34.90 - Encounter for supervision of normal , unspecified, unspecified trimester Category: Medical Plan Patient is here because she had had some spotting after doing home test she was not able to get in the day that she had called because she was still in transit from [place]. She then had more spotting after intercourse on Friday in night and she had a little bit more spotting Friday after work at the [employer] [facility] [employer] so she went to the emergency room and was seen near. She had a serum HCG which was 29,000 and a pelvic ultrasound which showed cardiac activity in about 6 weeks and 3 days. She did have some nausea and was having about saw the after eating some chicken yesterday also a little bit of constipation and bearing down and after that she had a little bit of bright red spotting as well today it is nothing there and she has never had any cramping. This is a planned she is very happy she has 2 children her 1st child was vaginal in her 2nd child was a because he was 9 lb. (she is tiny) She has been taking vitamins with folic acid in preparation for so she is already on them she is a little nauseous but she did not need anything for nausea in her other pregnancies and she does not feel she needs it now. I reviewed her lack of any bright red bleeding and no cramping there was no blood coming from her os this is all reassuring her ultrasound done 2 days ago was extremely reassuring with cardiac activity seen even though it could not be documented in both modes on the ultrasound. She felt better after it as well. The hCG was 29,000. I reviewed her past OB history in some detail given that she had a previous C- section and would be very much interested in having a she would be well served by establishing care early on where she is going to deliver to have this relationships established and have the conversations about modes of delivery and risks etc. she would be a good candidate provided she does not have a very large baby for her size again all and all things being equal.. I gave her the list of all the practices at [facility] with the proviso that some addresses her numbers may have changed as it is an old list at this point. If she does elect to come here for care I shared with her that her 1st visit would be with the RN and then subsequent visits with providers but the most time sensitive issue was arranging and being seen in time to arrange for the 1st trimester screening ultrasound and lab work which would be done at [facility] and that any time there is transferring of information there is an opportunity for gaps in care. We will see her if she likes to be seen here for the 1st part of the with the above provisos. I reminded her that there is no obstetric unit at [facility] so any urgent issues would need to be taken care of at [facility]. Orders: Orders CT NG by PCR Today N89.8 - Other specified noninflammatory disorders of vagina Bacterial Vaginosis Panel Today N89.8 - Other specified noninflammatory disorders of vagina Coding Level of Care Code Est Pt Level 3 (58115) Diagnoses Early stage of Z34.90
== END 2024-07-16 15:34 | disposition home or self-care (01) ==
LOC: HO.HWSM 14:38
PROVIDERS: PCP Internal Medicine; Visit Provider Advanced Practice Midwife
DX: Z34.90 Encounter for supervision of normal pregnancy, unspecified, unspecified trimester (principal)
CPT/HCPCS: 99213

== ENCOUNTER 2024-07-16 14:38 | Outpatient (REF) | payer OTHER, SELFPAY ==
[2024-07-17 06:38] LABS: CT PCR NOT DETECTED (Not Detect.); NG PCR NOT DETECTED (Not Detect.)
[2024-07-17 11:42] LABS: Bacterial Vaginosis PCR NEGATIVE (Negative); Candida Group PCR NOT DETECTED (Not Detect); Candida glab krusei PCR NOT DETECTED (Not Detect); Trichomonas vaginalis PCR NOT DETECTED (Not Detect)
== END 2024-07-16 14:39 | disposition home or self-care (01) ==
LOC: HO.LAB 14:38
PROVIDERS: PCP Internal Medicine; Visit Provider Advanced Practice Midwife
DX: N98.9 Complication associated with artificial fertilization, unspecified (principal); Z34.90 Encounter for supervision of normal pregnancy, unspecified, unspecified trimester
CPT/HCPCS: 0352U; 87491; 87591; 99212

== ENCOUNTER 2025-09-27 14:05 | Outpatient (AMB) | payer OTHER, SELFPAY ==
--- NOTE | 2025-09-27 14:12 | MHC.PC.OV ---
Vital Signs 09/27/25 14:29 Height 5 ft 5 in Weight 109 lb 4 oz BMI 18.2 BP 112/62 Blood Pressure Location Lt brachial Position Sitting Respiration 18 Pulse 96 Pulse Source Pulse Oximeter Temp Source Temporal Artery Scan Pulse Oximetry (%) 100 Oxygen Delivery Method Room Air Intake Visit Reasons: needs to be cleared to return to work [employer] Required: No Accompanied by: Self / Same As Patient Allergies No Known Allergies (No Known Allergies*) Allergy (Verified 09/27/25 14:37) Medication List - Last Reconciled 09/27/25 by JOSE West [id number] 50-325-40 mg 1 tab PO Q6H PRN cephalexin 500 mg PO QID 7 days hydrocodone-acetaminophen 5-325 mg 1 tab PO BID PRN tizanidine 4 mg PO Q8H PRN 10 days tramadol 50 mg PO TID PRN Tobacco use date assessed: 09/27/25 Dental Screening Dental Screen Date: 09/27/25 Did you have a dental visit in the last 12 months?: No Did you have a dental problem in the last 6 months where you did not have access to dental care?: No Was dental information given to patient?: No HPI needs to be cleared to return to work HPI Details The patient is a 35-year-old female presenting for medical clearance to return to work. She has been on leave from work since January for anxiety and depression. She also gave in March and wanted to ensure she was stable before returning. The patient stopped her anxiety medications during and has remained off them, with plans to continue to do so. While she feels ready to go back, she reports feeling more anxious in the last few weeks about the transition. The patient's appetite has improved. She mentions losing a couple of family members last year. [facility] Medical History Family history of breast cancer Fibroadenoma Smoker Left ovarian cyst Ovarian cyst History of migraine Surgical History Hx of section Family History Paternal Aunt Breast cancer Father Hypertension High cholesterol Mother Hypertension High cholesterol Social History Housing: Apartment Alcohol intake: current Alcohol intake frequency: holidays/special occasions only Patient Tobacco Use Status: Current everyday Tobacco user Tobacco use type: Cigarette Cigarettes Per Day: 7 e-Cigarette/Vaping Use: Never Used Second Hand Smoke Exposure: Yes service: No Current occupational status: employed Gender identity: Female Cognitive needs: No Hearing needs: No Vision needs: No Female Reproductive History Menstrual Age of Menarche: 11 Questionnaire PHQ-9 Over the last 2 weeks, how often have you been bothered by any of the following problems? 1. Little interest or pleasure in doing things: not at all 2. Feeling down, depressed, or hopeless: not at all 3. Trouble falling or staying asleep, or sleeping too much: not at all 4. Feeling tired or having little energy: not at all 5. Poor appetite or overeating: not at all 6. Feeling bad about yourself - or that you are a failure or have let yourself or your family down: not at all 7. Trouble concentrating on things, such as reading the newspaper or watching television: not at all 8. Moving or speaking so slowly that other people could have noticed. Or the opposite - being so fidgety or restless that you have been moving around a lot more than usual: not at all 9. Thoughts that you would be better off or of hurting yourself in some way: not at all Total score: 0 Source: Developed by Drs. Dallas Pagan, Miryam Noriega, Adonis Blackman and colleagues, with an educational huber from [employer]. Thrive Questionnaire Date Thrive assessed: 09/27/25 I am a: Patient What is your living situation today?: I have a steady place to live Within the past 12 months, did the food you bought not last and you didn't have the money to get more?: I choose not to answer this question Within the past 12 months, did you worry whether your food would run out before you got money to buy more?: I choose not to answer this question Do you have trouble paying for medicines?: No Do you have trouble getting transportation to medical appointments?: No Do you have trouble paying your heating and electricity bill?: No Do you have trouble taking care of your child, family member or friend?: No Do you have trouble with day-to-day activities such as bathing, preparing meals, shopping, managing finances, etc.?: No Are you currently unemployed and looking for a job?: No Are you interested in more education?: No Please select the resources that you would like help with: None Currently or been in a relationship where the following occur: No concerns reported THRIVE Score: 0 AUDIT C Alcohol Use Questionnaire (AUDIT-C) 1. How often do you have a drink containing alcohol?: Monthly or less 2. How many drinks containing alcohol do you have on a typical day when you are drinking?: 1 or 2 3. How often do you have six or more drinks on one occasion?: Never Total Score: 1 LALITO-7 AMB Questionnaire LALITO-7 Date LALITO - 7 assessed: 09/27/25 Feeling nervous, anxious, or on edge: 0 = Not at all Not being able to stop or control worryin = Not at all Worrying too much about different things: 0 = Not at all Trouble relaxin = Not at all Being so restless that it is hard to sit still: 0 = Not at all Becoming easily annoyed or irritable: 0 = Not at all Feeling afraid as if something awful might happen: 0 = Not at all Total LALITO-7 score (0-4 normal; 5-9 mild; 10-14 moderate; 15-21 severe): 0 Source: Developed by Drs. Dallas Pagan, Miryam Noriega, Adonis Blackman and colleagues, with an educational huber from [employer]. Review of Systems Const Denies body aches, Denies chills, Denies fever(s), Denies headache(s) and Denies poor appetite Eyes Reports no additional complaints ENT Denies dysphagia, Denies dizziness, Denies headache(s) and Denies odynophagia Card Denies chest pain, Denies syncope, Denies edema, Denies irregular heart rhythm, Denies lightheadedness and Denies dyspnea Resp Denies cough and Denies dyspnea GI Denies abdominal pain, Denies constipation, Denies dysphagia, Denies diarrhea, Denies nausea, Denies odynophagia and Denies vomiting Reports no additional complaints Musc Reports no additional complaints and Denies abnormal gait Skin/Breast Reports system reviewed and no additional complaints, except as documented Neuro Denies abnormal gait, Denies dizziness, Denies syncope and Denies headache(s) Psych Reports anxiety (ongoing but feels ready to go back to her normal schedule) and Reports depression Physical exam (Primary Care) Vital Signs: Last Vital Signs Pulse 96 09/27/25 14:29 Resp 18 09/27/25 14:29 BP 86/60 L 09/27/25 14:29 Pulse Ox 100 09/27/25 14:29 Oxygen Delivery Method Room Air 09/27/25 14:29 BMI result Body Mass Index 18.2 Tobacco/Smoking Status: Tobacco use Status Tobacco use date assessed 09/27/25 09/27/25 14:35 Patient Tobacco Use Status Current everyday Tobacco 09/27/25 14:13 Tobacco use type Cigarette 09/27/25 14:13 e-Cigarette/Vaping Use Never Used 09/27/25 14:35 PHQ-9: PHQ-9 Score PHQ-9: Total score 0 09/27/25 14:35 Thrive Assessment: Date of Thrive Assessment Date Thrive assessed 09/27/25 09/27/25 14:35 Currently or been in a relationship where the following occur: No concerns reported Const General: cooperative, healthy appearing, comfortable and no acute distress Orientation/consciousness: patient oriented x3 HENMT Head: Yes normocephalic Ears: hearing grossly normal bilaterally General nose exam: Normal external nose present Eyes General: appearance normal, both eyes and all related structures Conjunctivae: conjunctivae normal Neck Neck: Yes full ROM and Yes no lymphadenopathy Resp Effort & Inspection: normal respiratory effort Auscultation: clear to auscultation bilaterally, no crackles, no rales, no rhonchi and no wheezes Cardio Rate: regular rate Rhythm: regular rhythm Skin General skin exam: no rashes or lesions noted Neuro General: patient oriented x3 Gait exam (Neuro): Normal gait present Extrem General: Yes normal to inspection, Yes full ROM and No edema Psych Affect: normal affect Attitude: cooperative Insight: Good insight present (Psych) Judgement: Good judgement present (Psych) Coding Level of Care Code Est Pt Level 3 (32618) Diagnoses Anxiety F41.9 Time Spent (min) 28 Assessment & Plan Assessment & Plan (1) Anxiety: Code(s): F41.9 - Anxiety disorder, unspecified Category: Medical Plan: The patient feels she is ready to return to work after being on leave for anxiety, depression, and recovery. The patient is able to go back to work without any restrictions. She has an annual physical with Dr. Leal on 11/11/25, we will re-evaluate her condition then.
[2025-09-27 14:29] VITALS: BP 112/62; PULSE 96; RESP 18; O2SAT 100; BMI 18.2
== END 2025-09-27 15:31 | disposition home or self-care (01) ==
LOC: HO.HMCH 14:05
PROVIDERS: PCP Internal Medicine
DX: F41.9 Anxiety disorder, unspecified (principal)

== ENCOUNTER → 2025-09-27 14:05 | Outpatient (BNVA) | payer OTHER, SELFPAY | PROVIDERS: PCP Internal Medicine | DX: F41.9 Anxiety disorder, unspecified (principal) | CPT/HCPCS: 99212 ==